=== PATIENT | male | born 1960 | race Caucasian/White ===

== ENCOUNTER → 2016-09-01 | Outpatient (CLI) | payer MEDICARE, BC ==
[~2016-09-01] MED LIST: SODIUM CHLORIDE 0.9% 250 ML in EMPTY BAG 1 BAG IV PRN; SODIUM CHLORIDE 0.9% 500 ML in EMPTY BAG 1 BAG IV PRN
[2016-09-01 11:27] VITALS: RESP 16; TEMP 98
[2016-09-01 11:54] LABS: Basophils % (A) 1 %; CH 31.7; CHCM 33.4; Eosinophils # (A) 0.2 k/uL (0-0.7); Eosinophils % (A) 5 %; HCT 45.3 % (39.0-53.0); HDW 2.57; HGB 15.1 gm/dL (13.0-17.5); Luc # (Auto) 0.14; Luc % (Auto) 3; Lymphocytes # (A) 1.4 k/uL (1.0-4.8); Lymphocytes % (A) 27 %; MCH 31.7 pg (25.0-35.0); MCHC 33.3 g/dL (31.0-37.0); MCV 95.3 fL (80.0-100.0); Mean Platelet Volume 6.8; Monocytes # (A) 0.5 k/uL (0-1.0); Monocytes % (A) 9 %; Neutrophils % (A) 57 %; RBC 4.76 m/uL (4.30-5.90); RDW 14.7 % (11.5-15.5); WBC 5.3 k/uL (3.8-10.6)
[2016-09-01 12:13] LABS: ALT 50 U/L (21-72); AST 29 U/L (17-59); Anion Gap 14 mmol/L; Blood Urea Nitrogen 17 mg/dL (9-20); C Reactive Protein <5.0 mg/L (<10.0); Calcium 9.4 mg/dL (8.4-10.2); Carbon Dioxide 24 mmol/L (22-30); Chloride 101 mmol/L (98-107); Glucose 193 mg/dL (74-99); Non-African American GFR(MDRD) >60 (>60 ml/min/1.73 sqM); Potassium 4.5 mmol/L (3.5-5.1); Sodium 139 mmol/L (137-145)
[2016-09-01 12:32] VITALS: BP 111/70; PULSE 62
[2016-09-01 13:55] LABS: Erythrocyte Sedimentation Rate 4 mm/hr (0-15)
== END | disposition home or self-care (01) ==
LOC: PROCWHC3 10:29
PROVIDERS: ATTEND Internal Medicine Rheumatology
DX: M06.89 Other specified rheumatoid arthritis, multiple sites (principal)
CPT/HCPCS: 80048; 85652; 84450; 84460; 85025; 86140; 96361; 96413; 96415; J1745

== ENCOUNTER → 2016-10-15 | Outpatient (CLI) | payer MEDICARE, BC ==
[2016-10-15 10:27] VITALS: RESP 18; TEMP 98.4
[2016-10-15 12:28] VITALS: BP 117/81; PULSE 61
== END | disposition home or self-care (01) ==
LOC: PROCWHC3 10:07
PROVIDERS: ATTEND Internal Medicine Rheumatology
DX: M06.89 Other specified rheumatoid arthritis, multiple sites (principal)
CPT/HCPCS: 96361; 96413; 96415; J1745

== ENCOUNTER → 2016-12-01 | Outpatient (CLI) | payer MEDICARE, BC ==
[2016-12-01 07:46] VITALS: RESP 16; TEMP 97.5
[2016-12-01 08:14] LABS: Basophils % (A) 1 %; CH 32.1; CHCM 33.8; Eosinophils # (A) 0.2 k/uL (0-0.7); Eosinophils % (A) 4 %; HCT 42.2 % (39.0-53.0); HDW 2.59; HGB 14.5 gm/dL (13.0-17.5); Luc # (Auto) 0.17; Luc % (Auto) 3; Lymphocytes # (A) 1.5 k/uL (1.0-4.8); Lymphocytes % (A) 28 %; MCH 32.7 pg (25.0-35.0); MCHC 34.2 g/dL (31.0-37.0); MCV 95.4 fL (80.0-100.0); Mean Platelet Volume 7.5; Monocytes # (A) 0.4 k/uL (0-1.0); Monocytes % (A) 8 %; Neutrophils # (A) 2.9 k/uL (1.3-7.7); Neutrophils % (A) 55 %; RBC 4.42 m/uL (4.30-5.90); WBC 5.2 k/uL (3.8-10.6); WBC (Perox) 5.43
[2016-12-01 08:22] LABS: ALT 34 U/L (21-72); AST 24 U/L (17-59); Anion Gap 10 mmol/L; Blood Urea Nitrogen 15 mg/dL (9-20); Calcium 9.8 mg/dL (8.4-10.2); Carbon Dioxide 27 mmol/L (22-30); Chloride 103 mmol/L (98-107); Glucose 153 mg/dL (74-99); Non-African American GFR(MDRD) >60 (>60 ml/min/1.73 sqM); Potassium 4.3 mmol/L (3.5-5.1); Sodium 140 mmol/L (137-145)
[2016-12-01 09:27] VITALS: BP 105/59; PULSE 59
[2016-12-01 09:36] LABS: C Reactive Protein <5.0 mg/L (<10.0)
[2016-12-01 10:07] LABS: Erythrocyte Sedimentation Rate 3 mm/hr (0-15)
== END | disposition home or self-care (01) ==
LOC: PROCWHC3 07:28
PROVIDERS: ATTEND Internal Medicine Rheumatology
DX: M06.89 Other specified rheumatoid arthritis, multiple sites (principal)
CPT/HCPCS: 80048; 85652; 84450; 84460; 85025; 86140; 96361; 96413; 96415; 36415; J1745

== ENCOUNTER → 2017-01-12 | Outpatient (CLI) | payer MEDICARE, BC ==
[~2017-01-12] MED LIST changes: +ACETAMINOPHEN TAB 325 MG TAB PO ONE; +diphenhydrAMINE 25 MG CAP PO ONE; +diphenhydrAMINE 50 MG/ML 1 ML VIAL IVP ONE
[2017-01-12 07:47] VITALS: TEMP 97.8
[2017-01-12 08:48] VITALS: PULSE 64
[2017-01-12 09:16] VITALS: BP 113/68; RESP 12
== END | disposition home or self-care (01) ==
LOC: PROCWHC3 07:21
PROVIDERS: ATTEND Internal Medicine Rheumatology
DX: M06.89 Other specified rheumatoid arthritis, multiple sites (principal)
CPT/HCPCS: 96361; 96413; 96415; J1745; 80048; 84450; 84460; 85025; 85652; 86140

== ENCOUNTER → 2017-02-23 | Outpatient (CLI) | payer MEDICARE, BC ==
[2017-02-23 08:10] VITALS: RESP 16; TEMP 97.9
[2017-02-23 08:23] LABS: Basophils # (A) 0.1 k/uL (0-0.2); Basophils % (A) 1 %; CH 32.4; CHCM 34.2; Eosinophils # (A) 0.2 k/uL (0-0.7); Eosinophils % (A) 4 %; HCT 43.2 % (39.0-53.0); HDW 2.72; HGB 14.6 gm/dL (13.0-17.5); Luc % (Auto) 3; Lymphocytes # (A) 1.7 k/uL (1.0-4.8); Lymphocytes % (A) 25 %; MCH 32.2 pg (25.0-35.0); MCHC 33.8 g/dL (31.0-37.0); MCV 95.2 fL (80.0-100.0); Monocytes # (A) 0.6 k/uL (0-1.0); Monocytes % (A) 8 %; Neutrophils # (A) 4.1 k/uL (1.3-7.7); Neutrophils % (A) 60 %; RBC 4.53 m/uL (4.30-5.90); RDW 15.3 % (11.5-15.5); WBC 6.8 k/uL (3.8-10.6); WBC (Perox) 6.77
[2017-02-23 08:43] LABS: ALT 31 U/L (21-72); AST 22 U/L (17-59); Anion Gap 11 mmol/L; Blood Urea Nitrogen 16 mg/dL (9-20); Calcium 9.2 mg/dL (8.4-10.2); Carbon Dioxide 23 mmol/L (22-30); Chloride 103 mmol/L (98-107); Glucose 158 mg/dL (74-99); Non-African American GFR(MDRD) >60 (>60 ml/min/1.73 sqM); Potassium 4.2 mmol/L (3.5-5.1); Sodium 137 mmol/L (137-145)
[2017-02-23 09:19] LABS: C Reactive Protein <5.0 mg/L (<10.0)
[2017-02-23 09:48] VITALS: BP 122/70; PULSE 62
[2017-02-23 10:12] LABS: Erythrocyte Sedimentation Rate 5 mm/hr (0-15)
[2017-02-23 11:44] LABS: Appearance,Urine Clear (Clear); Bilirubin,Urine Negative (Negative); Glucose,Urine (UA) Negative (Negative); Ketones,Urine Negative (Negative); Leukocyte Esterase,Urine Negative (Negative); Nitrite,Urine Negative (Negative); PH, Urine 5.5 (5.0-8.0); Protein,Urine Negative (Negative); Specific Gravity,Urine 1.004 (1.001-1.035); UA Billing (MACRO vs. MICRO) CHEM; Urobilinogen,Urine <2.0 mg/dL (<2.0)
== END | disposition home or self-care (01) ==
LOC: PROCWHC3 07:14
PROVIDERS: ATTEND Internal Medicine Rheumatology
DX: M06.89 Other specified rheumatoid arthritis, multiple sites (principal)
CPT/HCPCS: 80048; 85652; 84450; 84460; 85025; 86140; 81003; 96413; 96415; 36415; J1745

== ENCOUNTER → 2017-03-03 | Outpatient (CLI) | payer MEDICARE, BC ==
--- NOTE | 2017-03-04 06:12 | CONS ---
DATE OF CONSULTATION: 03/03/2017 A 57-year-old gentleman has been evaluated in sleep center for possible obstructive sleep apnea hypopnea syndrome. HISTORY OF PRESENT ILLNESS/SLEEP WAKE EVALUATION: SLEEP SCHEDULE: The patient usually goes to bed around 10 p.m. and gets up around 3 a.m. and he gets so early since he was retired. FALLING ASLEEP: Usually no problem with falling asleep. He has TV set in bedroom. DURING SLEEP: Sleeps on the side position or in the chair. Wakes up from sleep once with nocturia. He snores. DURING THE DAY/WAKE STATE: During the day he may feel sleepiness. [place] sleepiness scale significantly increased to 10. He has problem with the memory and worries about his sleep. PAST MEDICAL HISTORY: Positive for heart attack in 2000, rheumatoid arthritis, diabetes mellitus, hypertension, hyperlipidemia, tremor. PAST SURGICAL HISTORY: Neck surgery, bilateral knee surgery for meniscus problems, stent insertions to the coronary arteries. MEDICATIONS: Methotrexate, simvastatin, metformin, isosorbide, propranolol, benazepril, bupropion, amlodipine, Ecotrin, vitamin D3 supplement, folic acid, Remicade. SOCIAL HISTORY: Positive for smoking 1 to 2 packs per day up to 30 years, quit 3 years ago. Alcohol consumption occasional. FAMILY HISTORY: Hypertension, heart problems, hyperlipidemia, arthritis, cancer , snoring, diabetes. REVIEW OF SYSTEMS: Awakening from sleep, sleepiness during the day. No fevers. No double vision. No recent chest pain. No shortness of breath. No abdominal pain. No bleeding episodes. No blood in urine. No seizure episodes. PHYSICAL EXAMINATION: During physical exam, a 57-year-old gentleman without distress. VITAL SIGNS: BP 128/86. HR 68. RR 14. Height 5 feet 10 inches, weight 298.4, BMI 44, neck 19 inches in circumference, temperature 98.3, oxygen saturation in room air 98%. HEENT: PERRLA, EOMI: Evaluation of oropharynx showed extremely low position of soft palate, restriction of nasal breathing. NECK: Supple No JVD. Thyroid is not palpable. LUNGS: Clear to percussion and to auscultation. Good air exchange. No wheezing or rhonchi. HEART: S1, S2 regular. No murmurs, gallops or rubs. ABDOMEN: Obese. EXTREMITIES: No clubbing or cyanosis. TOPOGRAPHICAL FIELD ASSISTANT: Minimal tremor of the fingers. Test with the finger nose is normal. IMPRESSION: 1. Snoring, extremely low position of soft palate, sleepiness during the day, big neck, obesity, obstructive sleep apnea hypopnea syndrome. 2. Obesity, body mass index 44. 3. History of rheumatoid arthritis. 4. History of diabetes mellitus. 5. Hyperlipidemia. 6. Coronary artery disease, status post myocardial infarction in 2000. 7. Status post stent insertion to coronary artery. 8. Hypertension. 9. Hyperlipidemia. 10. Status post neck surgery. 11. Status post bilateral knee surgery for meniscus problems. PLAN: 1. Polysomnography for evaluation of patient's breathing during sleep. 2. CPAP/BiPAP titration if sleep study confirms obstructive sleep apnea- hypopnea syndrome. 3. Preferable position during sleep on the side. 4. No driving if patient feels any sleepiness. Patient is aware of civil and criminal liability for unsafe driving. 5. I will see patient for follow-up visit to explain results of the testing and following plan. Thank you very much for referring this patient for consultation. Sincerely, Kye Camargo MD, PhD, FAASM Diplomat of [place] [employer] Sleep Medicine Board by [place] [employer] [place] [employer] Physical Meteorologist of [facility] [place]. BEAN
== END ==
LOC: SLEEP 11:42
PROVIDERS: ATTEND Internal Medicine
DX: G47.33 Obstructive sleep apnea (adult) (pediatric) (principal); E66.9 Obesity, unspecified; E78.5 Hyperlipidemia, unspecified; I25.10 Atherosclerotic heart disease of native coronary artery without angina pectoris; I10 Essential (primary) hypertension; I25.2 Old myocardial infarction; Z98.890 Other specified postprocedural states; Z79.899 Other long term (current) drug therapy
CPT/HCPCS: 99211

== ENCOUNTER → 2017-04-06 | Outpatient (CLI) | payer MEDICARE, BC ==
[~2017-04-06] MED LIST changes: -SODIUM CHLORIDE 0.9% 250 ML in EMPTY BAG 1 BAG IV PRN
[2017-04-06 07:28] VITALS: TEMP 97.7
[2017-04-06 07:57] LABS: Basophils % (A) 1 %; CH 32.7; CHCM 33.3; Eosinophils # (A) 0.2 k/uL (0-0.7); Eosinophils % (A) 3 %; HCT 47.7 % (39.0-53.0); HDW 2.61; HGB 15.1 gm/dL (13.0-17.5); Luc # (Auto) 0.11; Luc % (Auto) 2; Lymphocytes # (A) 1.7 k/uL (1.0-4.8); Lymphocytes % (A) 30 %; MCH 31.2 pg (25.0-35.0); MCHC 31.7 g/dL (31.0-37.0); MCV 98.6 fL (80.0-100.0); Macrocytosis Slight; Mean Platelet Volume 7.8; Monocytes # (A) 0.5 k/uL (0-1.0); Monocytes % (A) 8 %; Neutrophils % (A) 55 %; RBC 4.84 m/uL (4.30-5.90); RDW 15.5 % (11.5-15.5); WBC 5.4 k/uL (3.8-10.6); WBC (Perox) 5.25
[2017-04-06 08:11] LABS: ALT 38 U/L (21-72); AST 26 U/L (17-59); Alkaline Phosphatase 74 U/L (38-126); Anion Gap 10 mmol/L; Bilirubin, Delta 0.2 mg/dL (0.0-0.2); Blood Urea Nitrogen 17 mg/dL (9-20); Calcium 9.7 mg/dL (8.4-10.2); Carbon Dioxide 26 mmol/L (22-30); Chloride 102 mmol/L (98-107); Glucose 161 mg/dL (74-99); Non-African American GFR(MDRD) >60 (>60 ml/min/1.73 sqM); Potassium 4.6 mmol/L (3.5-5.1); Sodium 138 mmol/L (137-145); Total Bilirubin 0.3 mg/dL (0.2-1.3); Total Protein 7.3 g/dL (6.3-8.2)
[2017-04-06 09:38] VITALS: BP 118/56; PULSE 61; RESP 16
[2017-04-06 11:25] LABS: Erythrocyte Sedimentation Rate 5 mm/hr (0-15)
[2017-04-06 12:53] LABS: Appearance,Urine Clear (Clear); Bilirubin,Urine Negative (Negative); Glucose,Urine (UA) Negative (Negative); Ketones,Urine Negative (Negative); Leukocyte Esterase,Urine Negative (Negative); Nitrite,Urine Negative (Negative); PH, Urine 5.5 (5.0-8.0); Protein,Urine Negative (Negative); Specific Gravity,Urine 1.007 (1.001-1.035); UA Billing (MACRO vs. MICRO) CHEM; Urobilinogen,Urine <2.0 mg/dL (<2.0)
== END ==
LOC: PROCWHC3 07:14
PROVIDERS: ATTEND Internal Medicine Rheumatology
DX: M06.89 Other specified rheumatoid arthritis, multiple sites (principal)
CPT/HCPCS: 80053; 85652; 82248; 85025; 81003; 96413; 96415; J1745

== ENCOUNTER 2017-04-16 08:51 | Emergency (ER) | payer MEDICARE, BC ==
[2017-04-16 08:56] VITALS: RESP 18
--- NOTE | 2017-04-16 09:26 | ED ---
Back Pain HPI - General Chief Complaint: Back Pain/Injury Stated Complaint: BACK PAIN Time Seen by Provider: 04/16/17 09:09 Source: patient, RN notes reviewed Limitations: no limitations - History of Present Illness Initial Comments: Patient is a 57-year-old male presents to the emergency room for evaluation of back pain. Patient states last night while in sitting position, he went to stand up and felt a sharp pain in his mid thoracic back area. Patient states the pain was very excruciating so he laid in bed the rest of the night. Patient states he still having a constant nagging pain in his mid back. Patient denies shortness of breath or chest pain. Patient states the pain is not any worse with deep breaths. Patient states the pain is worse with movement. Patient states the pain is worse when he is bending forward. Patient denies he numbness or tingling in his fingers or toes. Patient denies any specific injury to his back. Patient denies any recent falls. Patient denies recent heavy lifting. Patient denies taking anything for pain. Patient denies any other injuries or complaints at this time. Patient denies fecal or urinary incontinence. Patient denies saddle anesthesia. - Related Data Home Medications Medication Instructions Recorded Confirmed Aspirin EC [Ecotrin] 325 mg PO DAILY 04/30/15 04/06/17 Folic Acid 1 mg PO DAILY 04/30/15 04/06/17 Isosorbide Dinitrate [Isosorbide 30 mg PO DAILY 04/30/15 04/06/17 Dinitrate] Methotrexate Sodium [Methotrexate] 2.5 mg PO WEEKLY 04/30/15 04/06/17 Simvastatin [Simvastatin] 80 mg PO DAILY 04/30/15 04/06/17 amLODIPine [Norvasc] 5 mg PO DAILY 04/30/15 04/06/17 buPROPion HCL [Wellbutrin SR] 150 mg PO DAILY 04/30/15 04/06/17 metFORMIN HCL [Glucophage] 1,000 mg PO BID 04/30/15 04/06/17 Cholecalciferol [Vitamin D3] 1,000 unit PO DAILY@1200 05/15/15 04/06/17 Propranolol HCl [Inderal LA] 120 mg PO DAILY 05/15/15 04/06/17 inFLIXimab [Remicade] 0 mg IVPB DAILY 05/15/15 04/06/17 Previous Rx's Medication Instructions Recorded HYDROcodone/APAP 5-325MG [Grubbs 1 tab PO Q6HR PRN #12 tab 04/16/17 5-325] Ibuprofen [Motrin] 600 mg PO Q6HR PRN #30 tab 04/16/17 Allergies Allergy/AdvReac Type Severity Reaction Status Date / Time No Known Allergies Allergy Verified 04/16/17 08:56 Review of Systems ROS Statement: Those systems with pertinent positive or pertinent negative responses have been documented in the HPI. ROS Other: All systems not noted in ROS Statement are negative. Past Medical History Past Medical History: Diabetes Mellitus, Hyperlipidemia, Hypertension, Myocardial Infarction ([place]), Rheumatoid Arthritis ([place]) Additional Past Medical History / Comment(s): Heart attack - 2000 Last Myocardial Infarction Date:: 2000 History of Any Multi-Drug Resistant Organisms: None Reported Past Surgical History: Orthopedic Surgery Additional Past Surgical History / Comment(s): Neck surgery. Shoulder surgery. Bilateral knee surgery. Stent placements (2000 and 2001). Total teeth extraction (2013) Past Psychological History: No Psychological Hx Reported Smoking Status: Former smoker Past Alcohol Use History: None Reported Past Drug Use History: None Reported General Exam - General Exam Comments Initial Comments: sitting in exam room, no acute distress. Limitations: no limitations General appearance: alert, in no apparent distress Head exam: Present: atraumatic, normocephalic, normal inspection Eye exam: Present: normal appearance ENT exam: Present: normal exam Neck exam: Present: normal inspection Respiratory exam: Present: normal lung sounds bilaterally. Absent: respiratory distress Cardiovascular Exam: Present: regular rate, normal rhythm, normal heart sounds Expanded Peripheral pulses: 2+: Femoral (R), Femoral (L) Extremities exam: Present: normal inspection, full ROM, normal capillary refill. Absent: tenderness Back exam: Present: normal inspection, full ROM, vertebral tenderness (mid- thoracic). Absent: tenderness, CVA tenderness (R), CVA tenderness (L), paraspinal tenderness Neurological exam: Present: alert, oriented X3, CN II-XII intact, normal gait Psychiatric exam: Present: normal affect, normal mood Skin exam: Present: warm, dry, intact, normal color. Absent: rash Course Vital Signs 04/16/17 04/16/17 08:52 09:56 Temperature 97.1 F L Pulse Rate 64 67 Respiratory 18 18 Rate Blood Pressure 168/85 116/70 O2 Sat by Pulse 99 Oximetry Medical Decision Making - Medical Decision Making patient is a 57-year-old male presents to the emergency room for evaluation of the midthoracic back pain. Patient states pain began when he was getting up from his chair last night. Patient denies taking anything for pain. EKG shows no significant findings. Chest x-ray shows no significant findings. There is some wedging noted and thoracic spine x-ray. Pain is worse with movement. Patient denies any worsening pain with taking a deep breath. Patient denies chest pain, shortness of breath, dizziness, diaphoresis. Patient be sent home with anti-inflammatories and pain medications and advised to follow-up with primary care provider. Patient has no neuro deficits. Patient states she understands everything that was discussed with him. Return parameters discussed. Case discussed with Dr. Smith. 04/16/17 10:55 normal sinus rhythm, ventricular rate 67 bpm, NH interval 196 ms, QRS duration 88 ms, QT/QTC 388/409 ms - Radiology Data Radiology results: report reviewed, image reviewed Disposition Clinical Impression: Thoracic back pain Disposition: HOME SELF-CARE Condition: Good Instructions: Thoracic Back Strain (ED) Additional Instructions: Warm moist heat. Take medications as needed. Please follow up with primary care provider for further evaluation. If any new symptom arises or symptoms worsen, return to ER as soon as possible. Prescriptions: HYDROcodone/APAP 5-325MG [Grubbs 5-325] 1 tab PO Q6HR PRN #12 tab PRN Reason: Pain Ibuprofen [Motrin] 600 mg PO Q6HR PRN #30 tab PRN Reason: Pain Referrals: Isaiah Jorgensen DO [Primary Care Provider] - 1-2 days Time of Disposition: 10:37
--- NOTE | 2017-04-16 09:51 | XR ---
EXAMINATION TYPE: XR chest 2V DATE OF EXAM: 04/16/2017 COMPARISON: 10/17/2015 HISTORY: Syncope chest pain TECHNIQUE: Frontal and lateral views of the chest are obtained. FINDINGS: There is no heart failure nor confluent pneumonic infiltrate. Costophrenic angles are lisset r. Cervical spine fusion surgery is noted. Bony thorax is intact. IMPRESSION: No active cardiopulmonary disease. No change.
--- NOTE | 2017-04-16 09:53 | XR ---
EXAMINATION TYPE: XR thoracic spine complete DATE OF EXAM: 04/16/2017 COMPARISON: NONE HISTORY: Back pain TECHNIQUE: 3 views FINDINGS: The thoracic vertebra fairly normal alignment. There is 10-15% anterior wedging of T10 and T9 T8 vertebra. There is mild kyphotic curvature. There is no paraspinal mass. There is mild spurring of the endplates. Posterior elements are intact. IMPRESSION: Mild wedging of a few thoracic vertebra. No definite acute fracture seen. No change compared to chest x-ray on 10/17/2015.
[2017-04-16 10:16] VITALS: BP 116/70; PULSE 67
[2017-04-16 10:53] VITALS: TEMP 98
== END 2017-04-16 10:53 | disposition home or self-care (01) ==
LOC: EC 08:51
DX: M54.6 Pain in thoracic spine (principal); E11.9 Type 2 diabetes mellitus without complications; E78.5 Hyperlipidemia, unspecified; I10 Essential (primary) hypertension; I25.2 Old myocardial infarction; M06.9 Rheumatoid arthritis, unspecified; Z87.891 Personal history of nicotine dependence; Z79.84 Long term (current) use of oral hypoglycemic drugs; Z79.899 Other long term (current) drug therapy; Z79.82 Long term (current) use of aspirin
CPT/HCPCS: 71020; 72072; 93005; 99283

== ENCOUNTER → 2017-05-18 | Outpatient (CLI) | payer MEDICARE, BC ==
[~2017-05-18] MED LIST changes: +INFLIXIMAB-DYYB 500 MG in SODIUM CHLORIDE 0.9% 250 ML IV NR
[2017-05-18 08:10] VITALS: TEMP 98.3
[2017-05-18 08:27] LABS: Anisocytosis Slight; Basophils % (A) 1 %; CH 32.3; CHCM 33.3; Eosinophils # (A) 0.2 k/uL (0-0.7); Eosinophils % (A) 4 %; HCT 42.5 % (39.0-53.0); HDW 2.58; HGB 14.2 gm/dL (13.0-17.5); Luc # (Auto) 0.12; Luc % (Auto) 2; Lymphocytes # (A) 1.4 k/uL (1.0-4.8); Lymphocytes % (A) 26 %; MCH 32.6 pg (25.0-35.0); MCHC 33.4 g/dL (31.0-37.0); MCV 97.6 fL (80.0-100.0); Macrocytosis Slight; Mean Platelet Volume 7.9; Monocytes # (A) 0.5 k/uL (0-1.0); Monocytes % (A) 8 %; Neutrophils # (A) 3.3 k/uL (1.3-7.7); Neutrophils % (A) 59 %; RBC 4.36 m/uL (4.30-5.90); RDW 16.3 % (11.5-15.5); WBC 5.5 k/uL (3.8-10.6); WBC (Perox) 5.08
[2017-05-18 08:43] LABS: ALT 27 U/L (21-72); AST 32 U/L (17-59); Alkaline Phosphatase 60 U/L (38-126); Anion Gap 11 mmol/L; Bilirubin, Delta 0.4 mg/dL (0.0-0.2); Blood Urea Nitrogen 14 mg/dL (9-20); Calcium 8.9 mg/dL (8.4-10.2); Carbon Dioxide 24 mmol/L (22-30); Chloride 100 mmol/L (98-107); Glucose 252 mg/dL (74-99); Non-African American GFR(MDRD) >60 (>60 ml/min/1.73 sqM); Sodium 135 mmol/L (137-145); Total Bilirubin 0.5 mg/dL (0.2-1.3); Total Protein 6.8 g/dL (6.3-8.2)
[2017-05-18 08:49] LABS: Potassium 4.8 mmol/L (3.5-5.1)
[2017-05-18 09:55] VITALS: BP 110/68; PULSE 60; RESP 16
[2017-05-18 11:52] LABS: Appearance,Urine Clear (Clear); Bilirubin,Urine Negative (Negative); Glucose,Urine (UA) 2+ (Negative); Ketones,Urine Negative (Negative); Leukocyte Esterase,Urine Negative (Negative); Nitrite,Urine Negative (Negative); PH, Urine 6.5 (5.0-8.0); Protein,Urine Negative (Negative); Specific Gravity,Urine 1.001 (1.001-1.035); UA Billing (MACRO vs. MICRO) CHEM; Urobilinogen,Urine <2.0 mg/dL (<2.0)
[2017-05-18 11:55] LABS: Erythrocyte Sedimentation Rate 2 mm/hr (0-15)
== END | disposition home or self-care (01) ==
LOC: PROCWHC3 07:55
PROVIDERS: ATTEND Internal Medicine Rheumatology
DX: M06.89 Other specified rheumatoid arthritis, multiple sites (principal)
CPT/HCPCS: 80053; 85652; 82248; 85025; 81003; 96413; 96415; 36415; Q5102; 96361

== ENCOUNTER → 2017-09-21 | Outpatient (CLI) | payer MEDICARE, BC ==
[~2017-09-21] MED LIST changes: -INFLIXIMAB-DYYB 500 MG in SODIUM CHLORIDE 0.9% 250 ML IV NR; +INFLIXIMAB-DYYB 500 MG in SODIUM CHLORIDE 0.9% 250 ML IV ONE
[2017-09-21 07:28] VITALS: TEMP 98.6
[2017-09-21 07:56] LABS: Basophils # (A) 0.1 k/uL (0-0.2); Basophils % (A) 1 %; Eosinophils # (A) 0.2 k/uL (0-0.7); Eosinophils % (A) 4 %; HCT 44.2 % (39.0-53.0); HGB 14.4 gm/dL (13.0-17.5); Lymphocytes # (A) 1.9 k/uL (1.0-4.8); Lymphocytes % (A) 33 %; MCH 30.9 pg (25.0-35.0); MCHC 32.5 g/dL (31.0-37.0); MCV 94.9 fL (80.0-100.0); Mean Platelet Volume 7.4; Monocytes # (A) 0.6 k/uL (0-1.0); Monocytes % (A) 10 %; Neutrophils # (A) 2.8 k/uL (1.3-7.7); Neutrophils % (A) 50 %; Platelet Count 201 k/uL (150-450); RBC 4.66 m/uL (4.30-5.90); RDW 15.4 % (11.5-15.5); WBC 5.6 k/uL (3.8-10.6)
[2017-09-21 08:02] LABS: ALT 30 U/L (21-72); AST 31 U/L (17-59); Albumin 4.3 g/dL (3.5-5.0); Alkaline Phosphatase 66 U/L (38-126); Anion Gap 12 mmol/L; Bilirubin, Delta 0.4 mg/dL (0.0-0.2); Blood Urea Nitrogen 16 mg/dL (9-20); Calcium 9.9 mg/dL (8.4-10.2); Carbon Dioxide 25 mmol/L (22-30); Chloride 103 mmol/L (98-107); Glucose 157 mg/dL (74-99); Sodium 140 mmol/L (137-145); Total Bilirubin 0.4 mg/dL (0.2-1.3); Total Protein 7.6 g/dL (6.3-8.2)
[2017-09-21 08:17] LABS: Potassium 4.7 mmol/L (3.5-5.1)
[2017-09-21 09:16] VITALS: BP 111/69; PULSE 63; RESP 16
[2017-09-21 10:13] LABS: Erythrocyte Sedimentation Rate 7 mm/hr (0-15)
[2017-09-21 12:31] LABS: Appearance,Urine Clear (Clear); Bilirubin,Urine Negative (Negative); Blood,Urine Negative (Negative); Color,Urine Light Yellow; Glucose,Urine (UA) Negative (Negative); Ketones,Urine Negative (Negative); Leukocyte Esterase,Urine Negative (Negative); Nitrite,Urine Negative (Negative); PH, Urine 5.5 (5.0-8.0); Protein,Urine Negative (Negative); Specific Gravity,Urine 1.005 (1.001-1.035); Urobilinogen,Urine <2.0 mg/dL (<2.0)
== END | disposition home or self-care (01) ==
LOC: PROCWHC3 07:14
PROVIDERS: ATTEND Internal Medicine Rheumatology
DX: M06.89 Other specified rheumatoid arthritis, multiple sites (principal)
CPT/HCPCS: 80053; 85652; 82248; 85025; 81003; 96413; 96415; Q5102

== ENCOUNTER → 2017-11-02 | Outpatient (CLI) | payer MEDICARE, BC ==
[2017-11-02 07:42] VITALS: RESP 16; TEMP 97.6
[2017-11-02 08:00] LABS: Basophils % (A) 1 %; Eosinophils # (A) 0.2 k/uL (0-0.7); Eosinophils % (A) 3 %; HCT 40.8 % (39.0-53.0); HGB 13.5 gm/dL (13.0-17.5); Lymphocytes # (A) 1.7 k/uL (1.0-4.8); Lymphocytes % (A) 29 %; MCHC 33.2 g/dL (31.0-37.0); MCV 93.4 fL (80.0-100.0); Monocytes # (A) 0.6 k/uL (0-1.0); Monocytes % (A) 10 %; Neutrophils # (A) 3.2 k/uL (1.3-7.7); Neutrophils % (A) 55 %; Platelet Count 175 k/uL (150-450); RBC 4.37 m/uL (4.30-5.90); RDW 15.1 % (11.5-15.5); WBC 5.8 k/uL (3.8-10.6)
[2017-11-02 08:27] LABS: ALT 27 U/L (21-72); AST 20 U/L (17-59); Albumin 3.9 g/dL (3.5-5.0); Alkaline Phosphatase 72 U/L (38-126); Anion Gap 11 mmol/L; Bilirubin, Delta 0.2 mg/dL (0.0-0.2); Blood Urea Nitrogen 19 mg/dL (9-20); Calcium 9.5 mg/dL (8.4-10.2); Carbon Dioxide 23 mmol/L (22-30); Chloride 103 mmol/L (98-107); Glucose 147 mg/dL (74-99); Potassium 4.4 mmol/L (3.5-5.1); Sodium 137 mmol/L (137-145); Total Bilirubin 0.2 mg/dL (0.2-1.3); Total Protein 6.8 g/dL (6.3-8.2)
[2017-11-02 09:38] VITALS: BP 127/75; PULSE 58
[2017-11-02 10:40] LABS: Appearance,Urine Clear (Clear); Bilirubin,Urine Negative (Negative); Blood,Urine Negative (Negative); Color,Urine Colorless; Glucose,Urine (UA) Negative (Negative); Ketones,Urine Negative (Negative); Leukocyte Esterase,Urine Negative (Negative); PH, Urine 5.5 (5.0-8.0); Protein,Urine Negative (Negative); Specific Gravity,Urine 1.004 (1.001-1.035); Urobilinogen,Urine <2.0 mg/dL (<2.0)
[2017-11-02 13:16] LABS: Erythrocyte Sedimentation Rate 7 mm/hr (0-15)
== END | disposition home or self-care (01) ==
LOC: PROCWHC3 07:11
PROVIDERS: ATTEND Internal Medicine Rheumatology
DX: M06.89 Other specified rheumatoid arthritis, multiple sites (principal)
CPT/HCPCS: 80053; 85652; 82248; 85025; 81003; 96413; 96415; 36415; Q5102

== ENCOUNTER → 2017-12-14 | Outpatient (CLI) | payer MEDICARE, BC ==
[~2017-12-14] MED LIST changes: -ACETAMINOPHEN TAB 325 MG TAB PO ONE; +INFLIXIMAB-DYYB 500 MG in SODIUM CHLORIDE 0.9% 250 ML IV NR; -INFLIXIMAB-DYYB 500 MG in SODIUM CHLORIDE 0.9% 250 ML IV ONE; -diphenhydrAMINE 25 MG CAP PO ONE; -diphenhydrAMINE 50 MG/ML 1 ML VIAL IVP ONE
[2017-12-14 08:20] VITALS: RESP 16; TEMP 97.6
[2017-12-14 09:15] LABS: Basophils % (A) 0 %; Eosinophils # (A) 0.2 k/uL (0-0.7); Eosinophils % (A) 4 %; HCT 42.1 % (39.0-53.0); HGB 14.4 gm/dL (13.0-17.5); Lymphocytes # (A) 1.5 k/uL (1.0-4.8); Lymphocytes % (A) 31 %; MCHC 34.1 g/dL (31.0-37.0); MCV 90.9 fL (80.0-100.0); Mean Platelet Volume 7.1; Monocytes # (A) 0.4 k/uL (0-1.0); Monocytes % (A) 9 %; Neutrophils # (A) 2.5 k/uL (1.3-7.7); Neutrophils % (A) 52 %; Platelet Count 204 k/uL (150-450); RBC 4.63 m/uL (4.30-5.90); RDW 14.7 % (11.5-15.5); WBC 4.9 k/uL (3.8-10.6)
[2017-12-14 09:28] LABS: ALT 27 U/L (21-72); AST 21 U/L (17-59); Alkaline Phosphatase 65 U/L (38-126); Anion Gap 12 mmol/L; Bilirubin, Delta 0.2 mg/dL (0.0-0.2); Blood Urea Nitrogen 17 mg/dL (9-20); Calcium 9.3 mg/dL (8.4-10.2); Carbon Dioxide 26 mmol/L (22-30); Chloride 102 mmol/L (98-107); Glucose 160 mg/dL (74-99); Potassium 4.4 mmol/L (3.5-5.1); Sodium 140 mmol/L (137-145); Total Bilirubin 0.2 mg/dL (0.2-1.3)
[2017-12-14 09:34] VITALS: PULSE 57
[2017-12-14 09:52] VITALS: BP 133/81
[2017-12-14 10:08] LABS: Erythrocyte Sedimentation Rate 3 mm/hr (0-15)
[2017-12-14 11:06] LABS: Appearance,Urine Clear (Clear); Bilirubin,Urine Negative (Negative); Blood,Urine Negative (Negative); Color,Urine Light Yellow; Glucose,Urine (UA) Negative (Negative); Ketones,Urine Negative (Negative); Leukocyte Esterase,Urine Negative (Negative); Nitrite,Urine Negative (Negative); PH, Urine 5.5 (5.0-8.0); Protein,Urine Negative (Negative); Urobilinogen,Urine <2.0 mg/dL (<2.0)
== END | disposition home or self-care (01) ==
LOC: PROCWHC3 08:13
PROVIDERS: ATTEND Internal Medicine Rheumatology
DX: M06.89 Other specified rheumatoid arthritis, multiple sites (principal)
CPT/HCPCS: 80053; 85652; 82248; 85025; 81003; 96413; 96415; 36415; Q5103

== ENCOUNTER → 2018-01-25 | Outpatient (CLI) | payer MEDICARE, BC ==
[~2018-01-25] MED LIST changes: +ACETAMINOPHEN TAB 325 MG TAB PO ONE; -INFLIXIMAB-DYYB 500 MG in SODIUM CHLORIDE 0.9% 250 ML IV NR; +INFLIXIMAB-DYYB 500 MG in SODIUM CHLORIDE 0.9% 250 ML IV ONE; +diphenhydrAMINE 25 MG CAP PO ONE; +diphenhydrAMINE 50 MG/ML 1 ML VIAL IVP ONE
[2018-01-25 08:42] VITALS: RESP 16; TEMP 99.6
[2018-01-25 08:44] LABS: Basophils % (A) 1 %; Eosinophils # (A) 0.2 k/uL (0-0.7); Eosinophils % (A) 4 %; HCT 41.6 % (39.0-53.0); Lymphocytes # (A) 1.4 k/uL (1.0-4.8); Lymphocytes % (A) 28 %; MCH 32.1 pg (25.0-35.0); MCHC 33.7 g/dL (31.0-37.0); MCV 95.3 fL (80.0-100.0); Mean Platelet Volume 7.1; Monocytes # (A) 0.5 k/uL (0-1.0); Monocytes % (A) 9 %; Neutrophils # (A) 2.8 k/uL (1.3-7.7); Neutrophils % (A) 55 %; Platelet Count 232 k/uL (150-450); RBC 4.37 m/uL (4.30-5.90); RDW 15.4 % (11.5-15.5)
[2018-01-25 09:04] LABS: Anion Gap 12 mmol/L; Bilirubin, Delta 0.4 mg/dL (0.0-0.2); Bilirubin,Unconjugated 0.1 mg/dL (0.0-1.1); Calcium 9.1 mg/dL (8.4-10.2); Carbon Dioxide 22 mmol/L (22-30); Chloride 102 mmol/L (98-107); Glucose 153 mg/dL (74-99); Sodium 136 mmol/L (137-145); Total Bilirubin 0.5 mg/dL (0.2-1.3); Total Protein 6.9 g/dL (6.3-8.2)
[2018-01-25 09:10] LABS: Blood Urea Nitrogen 18 mg/dL (9-20); Potassium 5.3 mmol/L (3.5-5.1)
[2018-01-25 09:11] LABS: ALT 26 U/L (21-72); AST 32 U/L (17-59); Alkaline Phosphatase 65 U/L (38-126)
[2018-01-25 09:28] LABS: Erythrocyte Sedimentation Rate 2 mm/hr (0-15)
[2018-01-25 10:13] VITALS: BP 109/59; PULSE 59
[2018-01-25 11:26] LABS: Appearance,Urine Clear (Clear); Bilirubin,Urine Negative (Negative); Blood,Urine Negative (Negative); Color,Urine Light Yellow; Glucose,Urine (UA) Negative (Negative); Ketones,Urine Negative (Negative); Leukocyte Esterase,Urine Negative (Negative); Nitrite,Urine Negative (Negative); PH, Urine 5.5 (5.0-8.0); Protein,Urine Negative (Negative); Specific Gravity,Urine 1.006 (1.001-1.035); Urobilinogen,Urine <2.0 mg/dL (<2.0)
== END | disposition home or self-care (01) ==
LOC: PROCWHC3 07:54
PROVIDERS: ATTEND Internal Medicine Rheumatology
DX: M06.89 Other specified rheumatoid arthritis, multiple sites (principal)
CPT/HCPCS: 80053; 85652; 82248; 85025; 81003; 96413; 96415; 36415; Q5103

== ENCOUNTER → 2018-03-08 | Outpatient (CLI) | payer MEDICARE, BC ==
[~2018-03-08] MED LIST changes: +ACETAMINOPHEN TAB 325 MG TAB PO NR; -ACETAMINOPHEN TAB 325 MG TAB PO ONE; +INFLIXIMAB-DYYB 500 MG in SODIUM CHLORIDE 0.9% 250 ML IV NR; -INFLIXIMAB-DYYB 500 MG in SODIUM CHLORIDE 0.9% 250 ML IV ONE; +diphenhydrAMINE 25 MG CAP PO NR; -diphenhydrAMINE 25 MG CAP PO ONE; -diphenhydrAMINE 50 MG/ML 1 ML VIAL IVP ONE
[2018-03-08 08:25] VITALS: RESP 16; TEMP 97.8
[2018-03-08 08:41] LABS: Anisocytosis Slight; Basophils % (A) 1 %; Eosinophils # (A) 0.2 k/uL (0-0.7); Eosinophils % (A) 4 %; HCT 41.8 % (39.0-53.0); HGB 14.1 gm/dL (13.0-17.5); Lymphocytes # (A) 1.5 k/uL (1.0-4.8); Lymphocytes % (A) 27 %; MCH 32.5 pg (25.0-35.0); MCHC 33.8 g/dL (31.0-37.0); MCV 96.2 fL (80.0-100.0); Macrocytosis Slight; Monocytes # (A) 0.5 k/uL (0-1.0); Monocytes % (A) 9 %; Neutrophils # (A) 3.2 k/uL (1.3-7.7); Neutrophils % (A) 58 %; Platelet Count 239 k/uL (150-450); RBC 4.34 m/uL (4.30-5.90); RDW 16.2 % (11.5-15.5); WBC 5.5 k/uL (3.8-10.6)
[2018-03-08 08:52] LABS: ALT 36 U/L (21-72); AST 23 U/L (17-59); Alkaline Phosphatase 55 U/L (38-126); Anion Gap 11 mmol/L; Bilirubin, Delta 0.2 mg/dL (0.0-0.2); Bilirubin,Unconjugated 0.2 mg/dL (0.0-1.1); Blood Urea Nitrogen 15 mg/dL (9-20); Calcium 9.3 mg/dL (8.4-10.2); Carbon Dioxide 26 mmol/L (22-30); Chloride 101 mmol/L (98-107); Glucose 141 mg/dL (74-99); Potassium 4.6 mmol/L (3.5-5.1); Sodium 138 mmol/L (137-145); Total Bilirubin 0.4 mg/dL (0.2-1.3); Total Protein 6.8 g/dL (6.3-8.2)
[2018-03-08 09:37] VITALS: BP 115/62; PULSE 56
[2018-03-08 09:38] LABS: Erythrocyte Sedimentation Rate 4 mm/hr (0-15)
[2018-03-08 10:55] LABS: Appearance,Urine Clear (Clear); Bilirubin,Urine Negative (Negative); Blood,Urine Negative (Negative); Color,Urine Light Yellow; Glucose,Urine (UA) Negative (Negative); Ketones,Urine Negative (Negative); Leukocyte Esterase,Urine Negative (Negative); Nitrite,Urine Negative (Negative); PH, Urine 5.5 (5.0-8.0); Protein,Urine Negative (Negative); Specific Gravity,Urine 1.007 (1.001-1.035); Urobilinogen,Urine <2.0 mg/dL (<2.0)
== END | disposition home or self-care (01) ==
LOC: PROCWHC3 08:08
PROVIDERS: ATTEND Internal Medicine Rheumatology
DX: M06.89 Other specified rheumatoid arthritis, multiple sites (principal)
CPT/HCPCS: 80053; 85652; 82248; 85025; 81003; 96361; 96413; 96415; 36415; Q5103

== ENCOUNTER → 2018-05-31 | Outpatient (CLI) | payer MEDICARE, BC ==
[2018-05-31 08:46] VITALS: RESP 16; TEMP 97.7
[2018-05-31 09:26] LABS: Basophils # (A) 0.1 k/uL (0-0.2); Basophils % (A) 1 %; Eosinophils # (A) 0.2 k/uL (0-0.7); Eosinophils % (A) 4 %; HCT 45.6 % (39.0-53.0); HGB 14.2 gm/dL (13.0-17.5); Lymphocytes # (A) 1.6 k/uL (1.0-4.8); Lymphocytes % (A) 28 %; MCH 30.7 pg (25.0-35.0); MCHC 31.2 g/dL (31.0-37.0); MCV 98.6 fL (80.0-100.0); Macrocytosis Slight; Mean Platelet Volume 7.3; Monocytes # (A) 0.5 k/uL (0-1.0); Monocytes % (A) 9 %; Neutrophils # (A) 3.2 k/uL (1.3-7.7); Neutrophils % (A) 57 %; Platelet Count 229 k/uL (150-450); RBC 4.63 m/uL (4.30-5.90); RDW 15.3 % (11.5-15.5); WBC 5.6 k/uL (3.8-10.6)
[2018-05-31 09:49] LABS: ALT 25 U/L (21-72); AST 27 U/L (17-59); Albumin 4.1 g/dL (3.5-5.0); Alkaline Phosphatase 64 U/L (38-126); Anion Gap 10 mmol/L; Bilirubin, Delta 0.5 mg/dL (0.0-0.2); Blood Urea Nitrogen 18 mg/dL (9-20); Calcium 9.5 mg/dL (8.4-10.2); Carbon Dioxide 25 mmol/L (22-30); Chloride 104 mmol/L (98-107); Glucose 144 mg/dL (74-99); Sodium 139 mmol/L (137-145); Total Bilirubin 0.5 mg/dL (0.2-1.3); Total Protein 7.4 g/dL (6.3-8.2)
[2018-05-31 09:54] LABS: Potassium 4.9 mmol/L (3.5-5.1)
[2018-05-31 10:01] VITALS: BP 130/74; PULSE 58
[2018-05-31 10:49] LABS: Erythrocyte Sedimentation Rate 6 mm/hr (0-15)
[2018-05-31 12:47] LABS: Appearance,Urine Clear (Clear); Bilirubin,Urine Negative (Negative); Blood,Urine Negative (Negative); Color,Urine Light Yellow; Glucose,Urine (UA) Negative (Negative); Ketones,Urine Negative (Negative); Leukocyte Esterase,Urine Negative (Negative); Nitrite,Urine Negative (Negative); Protein,Urine Negative (Negative); Specific Gravity,Urine 1.012 (1.001-1.035); Urobilinogen,Urine <2.0 mg/dL (<2.0)
== END | disposition home or self-care (01) ==
LOC: PROCWHC3 07:59
PROVIDERS: ATTEND Internal Medicine Rheumatology
DX: M06.89 Other specified rheumatoid arthritis, multiple sites (principal)
CPT/HCPCS: 80053; 85652; 82248; 85025; 81003; 96361; 96413; 96415; 36415; Q5103

== ENCOUNTER → 2018-08-03 | Outpatient (CLI) | payer MEDICARE, BC ==
--- NOTE | 2018-08-03 13:08 | SFUN ---
SLEEP CENTER FOLLOW UP NOTE DATE OF SERVICE: 08/03/2018 This 58-year-old gentleman has been followed in sleep center for treatment of obstructive sleep apnea-hypopnea syndrome. The patient continued to use his CPAP equipment every night for the whole night without significant problems related to mask fitting, pressure humidification. He is using nasal pillow mask and likes it. He tried to use a chin strap before but feels uncomfortable with that. I checked his CPAP unit. CPAP pressure is 14 cm of water. Usage is practically 100% of the night, average 5.6 hours. For the last 6 months leak, average leak is 54 L/minute. Apnea-hypopnea index only 2.5 which is absolutely normal. [place] Sleepiness Scale today is 9. MEDICATIONS: Isosorbide, atorvastatin, propranolol, bupropion, folic acid, metformin, benazepril, methotrexate, aspirin and D3 supplement, Inflectra. PHYSICAL EXAMINATION: During physical exam, patient in no distress. VITAL SIGNS: BP 156/85, HR 64, RR 16, height 5 feet 10 inches, weight 290 pounds, which is 4 pounds above weight during previous visit, body mass index 41.6, temperature 97.7, oxygen saturation room air 97%. HEENT: PERRLA, EOMI. Oropharynx extremely low position of soft palate. NECK: Supple, no JVD. Thyroid is not palpable. LUNGS: Clear to percussion and to auscultation. Good air exchange. No wheezing or rhonchi. HEART: S1, S2 regular. No murmurs, gallops, or rubs. ABDOMEN: Obese. EXTREMITIES: No clubbing or cyanosis. SERVICE CAR OPERATOR: Awake, alert, and oriented X3. Cranial nerves 2 to 7 intact. There is no fasciculation or atrophy. noted. No focal deficits observed. IMPRESSION: 1. Obstructive sleep apnea-hypopnea syndrome. Patient demonstrated great compliance with treatment benefitting from treatment. 2. Obesity. 3. Coronary artery disease, status post heart attack. 4. Hypertension. 5. History of rheumatoid arthritis. 6. Diabetes mellitus. 7. Hyperlipidemia. 8. Status post neck surgery. 9. Status post bilateral knee surgery for meniscus problems. PLAN: 1. Patient will continue to use CPAP equipment every night for the whole night with the same regimen. 2. Losing weight. 3. Sleep hygiene with regular time in bed for at least 8 hours. 4. No driving if feeling any sleepiness. 5. I would recommend to try different style of chin strap. 6. Follow-up visit in 1 year or earlier if patient has any problems. Thank you very much for allowing me to participate in management of your patient. Sincerely, Kye Camargo MD, PhD, FAASM Diplomat of [place] [employer] [place] [employer] Veneer Drier Tailer of [facility] [place] MMODL / [place]: [id number] /
== END ==
LOC: SLEEP 11:40
PROVIDERS: ATTEND Internal Medicine
DX: G47.33 Obstructive sleep apnea (adult) (pediatric) (principal); E66.9 Obesity, unspecified; I25.10 Atherosclerotic heart disease of native coronary artery without angina pectoris; I10 Essential (primary) hypertension; E11.9 Type 2 diabetes mellitus without complications; E78.5 Hyperlipidemia, unspecified; M06.9 Rheumatoid arthritis, unspecified; Z86.79 Personal history of other diseases of the circulatory system; Z98.890 Other specified postprocedural states; Z99.89 Dependence on other enabling machines and devices; Z79.82 Long term (current) use of aspirin; Z79.899 Other long term (current) drug therapy; Z79.84 Long term (current) use of oral hypoglycemic drugs

== ENCOUNTER → 2018-08-23 | Outpatient (CLI) | payer MEDICARE, BC ==
[~2018-08-23] MED LIST changes: +SODIUM CHLORIDE 0.9% 500 ML 500 ML in EMPTY BAG 1 BAG IV PRN; -SODIUM CHLORIDE 0.9% 500 ML in EMPTY BAG 1 BAG IV PRN
[2018-08-23 08:39] VITALS: RESP 16; TEMP 97.7
[2018-08-23 09:32] LABS: ALT 24 U/L (21-72); AST 35 U/L (17-59); Alkaline Phosphatase 49 U/L (38-126); Anion Gap 10 mmol/L; Blood Urea Nitrogen 15 mg/dL (9-20); Calcium 9.7 mg/dL (8.4-10.2); Carbon Dioxide 22 mmol/L (22-30); Chloride 106 mmol/L (98-107); Glucose 140 mg/dL (74-99); Sodium 138 mmol/L (137-145); Total Bilirubin 0.6 mg/dL (0.2-1.3); Total Protein 7.3 g/dL (6.3-8.2)
[2018-08-23 09:39] LABS: Basophils % (A) 1 %; Eosinophils # (A) 0.2 k/uL (0-0.7); Eosinophils % (A) 3 %; HCT 42.1 % (39.0-53.0); HGB 13.5 gm/dL (13.0-17.5); Lymphocytes # (A) 1.1 k/uL (1.0-4.8); Lymphocytes % (A) 21 %; MCH 30.5 pg (25.0-35.0); MCV 95.2 fL (80.0-100.0); Mean Platelet Volume 7.7; Monocytes # (A) 0.4 k/uL (0-1.0); Monocytes % (A) 7 %; Neutrophils # (A) 3.5 k/uL (1.3-7.7); Neutrophils % (A) 66 %; Platelet Count 203 k/uL (150-450); RBC 4.42 m/uL (4.30-5.90); RDW 15.9 % (11.5-15.5); WBC 5.4 k/uL (3.8-10.6)
[2018-08-23 09:44] LABS: Potassium 4.9 mmol/L (3.5-5.1)
[2018-08-23 10:18] VITALS: BP 127/66; PULSE 60
[2018-08-23 12:17] LABS: Appearance,Urine Clear (Clear); Bilirubin,Urine Negative (Negative); Blood,Urine Negative (Negative); Color,Urine Colorless; Glucose,Urine (UA) Negative (Negative); Ketones,Urine Negative (Negative); Leukocyte Esterase,Urine Negative (Negative); Nitrite,Urine Negative (Negative); Protein,Urine Negative (Negative); Specific Gravity,Urine 1.002 (1.001-1.035); Urobilinogen,Urine <2.0 mg/dL (<2.0)
[2018-08-23 14:18] LABS: Erythrocyte Sedimentation Rate 5 mm/hr (0-15)
== END | disposition home or self-care (01) ==
LOC: PROCWHC3 08:25
PROVIDERS: ATTEND Internal Medicine Rheumatology
DX: M06.89 Other specified rheumatoid arthritis, multiple sites (principal)
CPT/HCPCS: 80053; 85652; 85025; 81003; 96361; 96413; 96415; 36415; Q5103

== ENCOUNTER → 2018-10-04 | Outpatient (CLI) | payer MEDICARE, BC ==
[~2018-10-04] MED LIST changes: -diphenhydrAMINE 25 MG CAP PO NR; +diphenhydrAMINE 50 MG CAP PO NR
[2018-10-04 08:36] VITALS: RESP 16; TEMP 98
[2018-10-04 09:15] LABS: Albumin 4.3 g/dL (3.5-5.0); Calcium 9.6 mg/dL (8.4-10.2); Potassium 5.2 mmol/L (3.5-5.1); Total Bilirubin 0.6 mg/dL (0.2-1.3); Total Protein 7.3 g/dL (6.3-8.2)
[2018-10-04 09:58] LABS: Basophils % (A) 1 %; Eosinophils # (A) 0.2 k/uL (0-0.7); Eosinophils % (A) 5 %; HCT 45.7 % (39.0-53.0); HGB 14.6 gm/dL (13.0-17.5); Lymphocytes # (A) 1.5 k/uL (1.0-4.8); Lymphocytes % (A) 35 %; MCH 30.8 pg (25.0-35.0); MCV 96.5 fL (80.0-100.0); Monocytes # (A) 0.3 k/uL (0-1.0); Monocytes % (A) 8 %; Neutrophils % (A) 49 %; Platelet Count 171 k/uL (150-450); RBC 4.74 m/uL (4.30-5.90); WBC 4.1 k/uL (3.8-10.6)
[2018-10-04 10:19] VITALS: BP 104/58; PULSE 54
[2018-10-04 10:53] LABS: Bilirubin, Delta 0.3 mg/dL (0.0-0.2); Bilirubin,Unconjugated 0.3 mg/dL (0.0-1.1)
[2018-10-04 12:26] LABS: Appearance,Urine Clear (Clear); Bilirubin,Urine Negative (Negative); Blood,Urine Negative (Negative); Color,Urine Light Yellow; Glucose,Urine (UA) Negative (Negative); Ketones,Urine Negative (Negative); Leukocyte Esterase,Urine Negative (Negative); Nitrite,Urine Negative (Negative); Protein,Urine Negative (Negative); Urobilinogen,Urine <2.0 mg/dL (<2.0)
[2018-10-04 12:43] LABS: Erythrocyte Sedimentation Rate 8 mm/hr (0-15)
[2018-10-04 17:36] LABS: Hemoglobin A1C 6.7 % (4.0-6.0)
== END | disposition home or self-care (01) ==
LOC: PROCWHC3 08:17
PROVIDERS: ATTEND Family Medicine
DX: M06.89 Other specified rheumatoid arthritis, multiple sites (principal); E78.5 Hyperlipidemia, unspecified; E11.9 Type 2 diabetes mellitus without complications; T50.905D Adverse effect of unspecified drugs, medicaments and biological substances, subsequent encounter
CPT/HCPCS: 80061; 80053; 85652; 82248; 85025; 81003; 83036; 96361; 96413; 96415; 36415; Q5103

== ENCOUNTER → 2018-11-15 | Outpatient (CLI) | payer MEDICARE, BC ==
[~2018-11-15] MED LIST changes: -ACETAMINOPHEN TAB 325 MG TAB PO NR; +ACETAMINOPHEN TAB 325 MG TAB PO ONE; -diphenhydrAMINE 50 MG CAP PO NR; +diphenhydrAMINE 50 MG CAP PO ONE; +diphenhydrAMINE 50 MG/ML 1 ML VIAL IVP ONE
[2018-11-15 08:47] VITALS: RESP 16; TEMP 16
[2018-11-15 09:33] LABS: Basophils # (A) 0.1 k/uL (0-0.2); Basophils % (A) 1 %; Eosinophils # (A) 0.3 k/uL (0-0.7); Eosinophils % (A) 5 %; HCT 43.6 % (39.0-53.0); HGB 13.8 gm/dL (13.0-17.5); Lymphocytes # (A) 1.2 k/uL (1.0-4.8); Lymphocytes % (A) 22 %; MCHC 31.7 g/dL (31.0-37.0); MCV 94.8 fL (80.0-100.0); Mean Platelet Volume 7.5; Monocytes # (A) 0.5 k/uL (0-1.0); Monocytes % (A) 8 %; Neutrophils # (A) 3.4 k/uL (1.3-7.7); Neutrophils % (A) 62 %; Platelet Count 283 k/uL (150-450); RDW 14.2 % (11.5-15.5); WBC 5.5 k/uL (3.8-10.6)
[2018-11-15 09:57] LABS: ALT 22 U/L (21-72); AST 21 U/L (17-59); Albumin 3.8 g/dL (3.5-5.0); Alkaline Phosphatase 63 U/L (38-126); Anion Gap 9 mmol/L; Bilirubin, Delta 0.5 mg/dL (0.0-0.2); Bilirubin,Unconjugated 0.2 mg/dL (0.0-1.1); Blood Urea Nitrogen 12 mg/dL (9-20); Calcium 9.3 mg/dL (8.4-10.2); Carbon Dioxide 24 mmol/L (22-30); Chloride 105 mmol/L (98-107); Glucose 112 mg/dL (74-99); Sodium 138 mmol/L (137-145); Total Bilirubin 0.7 mg/dL (0.2-1.3); Total Protein 6.8 g/dL (6.3-8.2)
[2018-11-15 10:19] LABS: Potassium 4.7 mmol/L (3.5-5.1)
[2018-11-15 10:46] VITALS: BP 114/78; PULSE 80
[2018-11-15 11:12] LABS: Appearance,Urine Clear (Clear); Bilirubin,Urine Negative (Negative); Blood,Urine Moderate (Negative); Color,Urine Light Yellow; Glucose,Urine (UA) Negative (Negative); Ketones,Urine Negative (Negative); Leukocyte Esterase,Urine Small (Negative); Mucus,Urine Rare /hpf; Nitrite,Urine Negative (Negative); PH, Urine 5.5 (5.0-8.0); Protein,Urine Negative (Negative); RBC,Urine 3 /hpf (0-5); Specific Gravity,Urine 1.004 (1.001-1.035); Squamous Epithelial Cell,Urine <1 /hpf (0-4); Urobilinogen,Urine <2.0 mg/dL (<2.0); WBC,Urine 10 /hpf (0-5)
[2018-11-15 12:19] LABS: Erythrocyte Sedimentation Rate 24 mm/hr (0-15)
== END ==
LOC: PROCWHC3 08:03
PROVIDERS: ATTEND Internal Medicine Rheumatology
DX: M06.89 Other specified rheumatoid arthritis, multiple sites (principal)
CPT/HCPCS: 80053; 85652; 82248; 85025; 81001; 96360; 96413; 96415; 36415; Q5103

== ENCOUNTER → 2018-11-23 | Outpatient (CLI) | payer MEDICARE, BC ==
--- NOTE | 2018-11-23 12:46 | SFUN ---
SLEEP CENTER FOLLOW UP NOTE DATE OF SERVICE: 11/23/2018 A 58-year-old gentleman who has been followed in the Sleep Center for treatment of obstructive sleep apnea-hypopnea syndrome. Previous visit was in August 03, 2018 and during this visit, patient was fine. He was able to use his machine without any significant problems with a normal apnea-hypopnea index 2.5. Since that time, patient continued to lose his weight and today he lost about 40 pounds since that time when we did the sleep study, which may indicate that the pressure in the machine is higher than he needs and in September of this year he developed a burning sensation in his nose on the right side of his nose and he was not able to use his machine since that time. Today, his [place] Sleepiness Scale is 7. I checked his CPAP unit. For the last 6 months patient used it 125 nights, average usage 5.8 hours. Pressure is 14 cm of water. Significant leak, 53L/minute. Apnea- hypopnea index normal 2.4. MEDICATIONS: Isosorbide, atorvastatin, propranolol, bupropion, folic acid, metformin, benazepril, methotrexate, aspirin, D3 supplement, . PHYSICAL EXAM: Patient in no distress. BP 127/82, HR 62, RR 16, weight 258 pounds. Temperature 98.5, oxygen saturation at room air 97%. OROPHARYNX: Extremely low position of soft palate. ABDOMEN: Slightly obese. Neck Supple, no JVD. Thyroid is not palpable. LUNGS Clear to percussion and to auscultation. Good air exchange. No wheezing or rhonchi. HEART S1, S2 regular. No murmurs, gallops, or rubs. EXTREMITIES No clubbing or cyanosis. MEDICAL CLAIMS PROCESSOR Awake, alert, and oriented X3. Cranial nerves 2 to 7 intact. There is no fasciculation or atrophy. noted. No focal deficits observed. IMPRESSION: 1. Obstructive sleep apnea-hypopnea syndrome in mild range by results of sleep study which was done in 2016. At that time, apnea-hypopnea index was 12.2, but in REM sleep apnea-hypopnea index was extremely high at 73. Since that time, patient has lost 40 pounds and according to patient's after losing weight, he stopped snoring at night, even while he is not using his CPAP for the last 2 months. 2. Obesity, patient lost 40 pounds since previous titration. 3. Coronary artery disease, status post heart attack. 4. Hypertension. 5. History of rheumatoid arthritis. 6. Diabetes mellitus. 7. Hyperlipidemia. 8. Status post neck surgery. 9. Status post bilateral knee surgery for meniscus problems. PLAN: 1. Polysomnogram for evaluation of patient breathing at the present time after he lost 40 pounds. 2. Patient will not use CPAP treatment at the present time because after losing weight, possibly pressure in the machine too high for him now and may create side effects. 3. Continue losing weight. 4. Precautions related to driving. No driving if feeling sleepiness. 5. I will see patient for followup visit after we will do the sleep study to discuss results of the test and plan of the treatment. Thank you very much for allowing me to participate in the management of your patient. Sincerely, Kye Camargo MD, PhD, FAASM Diplomat of [place] [employer] [place] [employer] Relay Associate of [facility] [place] [facility]ODL / [place]: [id number] /
== END | disposition home or self-care (01) ==
LOC: SLEEP 11:05
PROVIDERS: ATTEND Internal Medicine
DX: G47.33 Obstructive sleep apnea (adult) (pediatric) (principal); R63.4 Abnormal weight loss; E66.9 Obesity, unspecified; I25.10 Atherosclerotic heart disease of native coronary artery without angina pectoris; I25.2 Old myocardial infarction; I10 Essential (primary) hypertension; E11.9 Type 2 diabetes mellitus without complications; E78.5 Hyperlipidemia, unspecified; Z98.890 Other specified postprocedural states; Z79.82 Long term (current) use of aspirin; Z99.89 Dependence on other enabling machines and devices; Z79.899 Other long term (current) drug therapy; Z79.84 Long term (current) use of oral hypoglycemic drugs

== ENCOUNTER → 2018-12-27 | Outpatient (CLI) | payer MEDICARE, BC ==
[2018-12-27 11:54] VITALS: RESP 16; TEMP 98.1
[2018-12-27 13:14] VITALS: BP 129/70; PULSE 66
[2018-12-27 14:43] LABS: Appearance,Urine Turbid (Clear); Bacteria,Urine Moderate /hpf; Bilirubin,Urine Negative (Negative); Blood,Urine Small (Negative); Color,Urine Light Yellow; Glucose,Urine (UA) Negative (Negative); Ketones,Urine Negative (Negative); Leukocyte Esterase,Urine Large (Negative); Mucus,Urine Rare /hpf; Nitrite,Urine Positive (Negative); PH, Urine 5.5 (5.0-8.0); Protein,Urine Trace (Negative); RBC,Urine 5 /hpf (0-5); Specific Gravity,Urine 1.011 (1.001-1.035); Urobilinogen,Urine <2.0 mg/dL (<2.0); WBC,Urine >182 /hpf (0-5)
== END ==
LOC: PROCWHC3 11:28
PROVIDERS: ATTEND Family Medicine
DX: M06.89 Other specified rheumatoid arthritis, multiple sites (principal)
CPT/HCPCS: 81001; 96361; 96413; 96415; Q5103

== ENCOUNTER → 2019-02-07 | Outpatient (CLI) | payer MEDICARE, BC ==
[2019-02-07 08:57] VITALS: RESP 16; TEMP 98
[2019-02-07 09:03] LABS: Basophils % (A) 1 %; Eosinophils # (A) 0.1 k/uL (0-0.7); Eosinophils % (A) 3 %; HCT 41.1 % (39.0-53.0); HGB 13.4 gm/dL (13.0-17.5); Lymphocytes # (A) 1.4 k/uL (1.0-4.8); Lymphocytes % (A) 27 %; MCH 29.9 pg (25.0-35.0); MCHC 32.6 g/dL (31.0-37.0); MCV 91.8 fL (80.0-100.0); Mean Platelet Volume 7.2; Monocytes # (A) 0.4 k/uL (0-1.0); Monocytes % (A) 8 %; Neutrophils # (A) 3.2 k/uL (1.3-7.7); Neutrophils % (A) 60 %; Platelet Count 211 k/uL (150-450); RBC 4.48 m/uL (4.30-5.90); RDW 15.8 % (11.5-15.5); WBC 5.3 k/uL (3.8-10.6)
[2019-02-07 09:13] LABS: ALT 22 U/L (21-72); AST 17 U/L (17-59); African American GFR (CKD) >90 (>60 ml/min/1.73 sqM); Albumin 3.8 g/dL (3.5-5.0); Alkaline Phosphatase 73 U/L (38-126); Anion Gap 7 mmol/L; Bilirubin, Delta 0.1 mg/dL (0.0-0.2); Bilirubin,Unconjugated 0.3 mg/dL (0.0-1.1); Blood Urea Nitrogen 15 mg/dL (9-20); Calcium 8.9 mg/dL (8.4-10.2); Carbon Dioxide 25 mmol/L (22-30); Chloride 107 mmol/L (98-107); Glucose 129 mg/dL (74-99); Potassium 4.3 mmol/L (3.5-5.1); Sodium 139 mmol/L (137-145); Total Bilirubin 0.4 mg/dL (0.2-1.3); Total Protein 6.6 g/dL (6.3-8.2)
[2019-02-07 09:55] VITALS: BP 129/75; PULSE 55
[2019-02-07 11:47] LABS: Appearance,Urine Cloudy (Clear); Bacteria,Urine Moderate /hpf; Bilirubin,Urine Negative (Negative); Blood,Urine Small (Negative); Color,Urine Light Yellow; Glucose,Urine (UA) Negative (Negative); Ketones,Urine Negative (Negative); Leukocyte Esterase,Urine Large (Negative); Mucus,Urine Rare /hpf; Nitrite,Urine Positive (Negative); PH, Urine 5.5 (5.0-8.0); Protein,Urine Negative (Negative); RBC,Urine 4 /hpf (0-5); Specific Gravity,Urine 1.006 (1.001-1.035); Squamous Epithelial Cell,Urine <1 /hpf (0-4); Urobilinogen,Urine <2.0 mg/dL (<2.0); WBC,Urine >182 /hpf (0-5)
[2019-02-07 13:03] LABS: Erythrocyte Sedimentation Rate 9 mm/hr (0-15)
== END | disposition home or self-care (01) ==
LOC: PROCWHC3 08:07
PROVIDERS: ATTEND Internal Medicine Rheumatology
DX: M06.89 Other specified rheumatoid arthritis, multiple sites (principal)
CPT/HCPCS: 80053; 85652; 82248; 85025; 81001; 96361; 96413; 96415; 36415; Q5103

== ENCOUNTER → 2019-03-21 | Outpatient (CLI) | payer MEDICARE, BC ==
[~2019-03-21] MED LIST changes: +diphenhydrAMINE 25 MG CAP PO ONE; -diphenhydrAMINE 50 MG CAP PO ONE
[2019-03-21 08:19] VITALS: RESP 16; TEMP 98.6
[2019-03-21 08:43] LABS: Anisocytosis Slight; Basophils % (A) 1 %; Eosinophils # (A) 0.3 k/uL (0-0.7); Eosinophils % (A) 4 %; HCT 43.1 % (39.0-53.0); HGB 14.3 gm/dL (13.0-17.5); Lymphocytes # (A) 1.5 k/uL (1.0-4.8); Lymphocytes % (A) 27 %; MCHC 33.1 g/dL (31.0-37.0); MCV 93.6 fL (80.0-100.0); Mean Platelet Volume 7.4; Monocytes # (A) 0.4 k/uL (0-1.0); Monocytes % (A) 8 %; Neutrophils # (A) 3.4 k/uL (1.3-7.7); Neutrophils % (A) 58 %; Platelet Count 149 k/uL (150-450); RBC 4.61 m/uL (4.30-5.90); RDW 17.4 % (11.5-15.5); WBC 5.8 k/uL (3.8-10.6)
[2019-03-21 08:57] LABS: ALT 22 U/L (21-72); AST 19 U/L (17-59); African American GFR (CKD) >90 (>60 ml/min/1.73 sqM); Albumin 3.9 g/dL (3.5-5.0); Alkaline Phosphatase 72 U/L (38-126); Anion Gap 7 mmol/L; Bilirubin, Delta 0.2 mg/dL (0.0-0.2); Bilirubin,Unconjugated 0.2 mg/dL (0.0-1.1); Blood Urea Nitrogen 14 mg/dL (9-20); Calcium 8.8 mg/dL (8.4-10.2); Carbon Dioxide 26 mmol/L (22-30); Chloride 104 mmol/L (98-107); Glucose 132 mg/dL (74-99); Potassium 4.1 mmol/L (3.5-5.1); Sodium 137 mmol/L (137-145); Total Bilirubin 0.4 mg/dL (0.2-1.3); Total Protein 6.8 g/dL (6.3-8.2)
[2019-03-21 10:00] VITALS: BP 167/88; PULSE 80
[2019-03-21 12:20] LABS: Appearance,Urine Clear (Clear); Bacteria,Urine Occasional /hpf; Bilirubin,Urine Negative (Negative); Blood,Urine Negative (Negative); Color,Urine Colorless; Glucose,Urine (UA) Negative (Negative); Ketones,Urine Negative (Negative); Leukocyte Esterase,Urine Trace (Negative); Nitrite,Urine Negative (Negative); PH, Urine 6.5 (5.0-8.0); Protein,Urine Negative (Negative); Specific Gravity,Urine 1.005 (1.001-1.035); Urobilinogen,Urine <2.0 mg/dL (<2.0); WBC,Urine 10 /hpf (0-5)
[2019-03-21 13:35] LABS: Erythrocyte Sedimentation Rate 8 mm/hr (0-15)
== END ==
LOC: PROCWHC3 08:01
PROVIDERS: ATTEND Internal Medicine Rheumatology
DX: M06.89 Other specified rheumatoid arthritis, multiple sites (principal)
CPT/HCPCS: 80053; 85652; 82248; 85025; 81001; 96361; 96413; 96415; 36415; Q5103

== ENCOUNTER → 2019-05-02 | Outpatient (CLI) | payer MEDICARE, BC ==
[~2019-05-02] MED LIST changes: +ACETAMINOPHEN TAB 325 MG TAB PO NR; -ACETAMINOPHEN TAB 325 MG TAB PO ONE; +diphenhydrAMINE 25 MG CAP PO NR; -diphenhydrAMINE 25 MG CAP PO ONE; +diphenhydrAMINE 50 MG/ML 1 ML VIAL IVP NR; -diphenhydrAMINE 50 MG/ML 1 ML VIAL IVP ONE
[2019-05-02 08:36] VITALS: RESP 16; TEMP 98.6
[2019-05-02 08:46] LABS: Anisocytosis Slight; Basophils # (A) 0.1 k/uL (0-0.2); Basophils % (A) 1 %; Eosinophils # (A) 0.2 k/uL (0-0.7); Eosinophils % (A) 4 %; HCT 42.4 % (39.0-53.0); HGB 13.6 gm/dL (13.0-17.5); Lymphocytes # (A) 1.4 k/uL (1.0-4.8); Lymphocytes % (A) 29 %; MCH 29.8 pg (25.0-35.0); MCHC 32.1 g/dL (31.0-37.0); MCV 92.9 fL (80.0-100.0); Mean Platelet Volume 7.1; Monocytes # (A) 0.4 k/uL (0-1.0); Monocytes % (A) 8 %; Neutrophils # (A) 2.8 k/uL (1.3-7.7); Neutrophils % (A) 57 %; Platelet Count 177 k/uL (150-450); RBC 4.56 m/uL (4.30-5.90); RDW 16.5 % (11.5-15.5); WBC 4.9 k/uL (3.8-10.6)
[2019-05-02 09:33] LABS: ALT 33 U/L (21-72); AST 31 U/L (17-59); African American GFR (CKD) >90 (>60 ml/min/1.73 sqM); Alkaline Phosphatase 71 U/L (38-126); Anion Gap 10 mmol/L; Bilirubin, Delta 0.4 mg/dL (0.0-0.2); Bilirubin,Unconjugated 0.2 mg/dL (0.0-1.1); Blood Urea Nitrogen 18 mg/dL (9-20); Calcium 9.5 mg/dL (8.4-10.2); Carbon Dioxide 25 mmol/L (22-30); Chloride 102 mmol/L (98-107); Glucose 142 mg/dL (74-99); Sodium 137 mmol/L (137-145); Total Bilirubin 0.6 mg/dL (0.2-1.3); Total Protein 7.1 g/dL (6.3-8.2)
[2019-05-02 09:42] LABS: Potassium 4.8 mmol/L (3.5-5.1)
[2019-05-02 09:55] VITALS: BP 132/80; PULSE 59
[2019-05-02 13:35] LABS: Erythrocyte Sedimentation Rate 9 mm/hr (0-15)
[2019-05-02 14:57] LABS: Appearance,Urine Clear (Clear); Bilirubin,Urine Negative (Negative); Blood,Urine Negative (Negative); Color,Urine Light Yellow; Glucose,Urine (UA) Negative (Negative); Ketones,Urine Negative (Negative); Leukocyte Esterase,Urine Negative (Negative); Nitrite,Urine Negative (Negative); PH, Urine 5.5 (5.0-8.0); Protein,Urine Negative (Negative); Specific Gravity,Urine 1.009 (1.001-1.035); Urobilinogen,Urine <2.0 mg/dL (<2.0)
== END | disposition home or self-care (01) ==
LOC: PROCWHC3 08:10
PROVIDERS: ATTEND Internal Medicine Rheumatology
DX: M06.89 Other specified rheumatoid arthritis, multiple sites (principal)
CPT/HCPCS: 80053; 85652; 82248; 85025; 81003; 96361; 96413; 96415; 36415; Q5103

== ENCOUNTER → 2019-06-13 | Outpatient (CLI) | payer MEDICARE, BC ==
[~2019-06-13] MED LIST changes: -ACETAMINOPHEN TAB 325 MG TAB PO NR; +ACETAMINOPHEN TAB 325 MG TAB PO ONE; -diphenhydrAMINE 25 MG CAP PO NR; +diphenhydrAMINE 25 MG CAP PO ONE; -diphenhydrAMINE 50 MG/ML 1 ML VIAL IVP NR
[2019-06-13 08:28] VITALS: TEMP 97.9
[2019-06-13 08:56] LABS: Basophils # (A) 0.1 k/uL (0-0.2); Basophils % (A) 2 %; Eosinophils # (A) 0.2 k/uL (0-0.7); Eosinophils % (A) 4 %; HGB 15.1 gm/dL (13.0-17.5); Lymphocytes % (A) 34 %; MCH 31.3 pg (25.0-35.0); MCHC 32.8 g/dL (31.0-37.0); MCV 95.5 fL (80.0-100.0); Mean Platelet Volume 7.4; Monocytes # (A) 0.4 k/uL (0-1.0); Monocytes % (A) 7 %; Neutrophils # (A) 3.1 k/uL (1.3-7.7); Neutrophils % (A) 51 %; Platelet Count 188 k/uL (150-450); RBC 4.81 m/uL (4.30-5.90); RDW 15.8 % (11.5-15.5)
[2019-06-13 09:08] VITALS: RESP 16
[2019-06-13 09:46] VITALS: BP 96/60; PULSE 54
[2019-06-13 10:37] LABS: Erythrocyte Sedimentation Rate 2 mm/hr (0-15)
[2019-06-13 11:42] LABS: Appearance,Urine Clear (Clear); Bilirubin,Urine Negative (Negative); Blood,Urine Negative (Negative); Color,Urine Colorless; Glucose,Urine (UA) Negative (Negative); Ketones,Urine Negative (Negative); Leukocyte Esterase,Urine Negative (Negative); Nitrite,Urine Negative (Negative); Protein,Urine Negative (Negative); Specific Gravity,Urine 1.005 (1.001-1.035); Urobilinogen,Urine <2.0 mg/dL (<2.0)
[2019-06-13 13:44] LABS: Albumin 4.4 g/dL (3.5-5.0); Bilirubin, Delta 0.5 mg/dL (0.0-0.2); Bilirubin,Unconjugated 0.1 mg/dL (0.0-1.1); Calcium 9.6 mg/dL (8.4-10.2); Total Bilirubin 0.6 mg/dL (0.2-1.3); Total Protein 7.8 g/dL (6.3-8.2)
[2019-06-13 13:59] LABS: Potassium 5.3 mmol/L (3.5-5.1)
== END | disposition home or self-care (01) ==
LOC: PROCWHC3 08:12
PROVIDERS: ATTEND Internal Medicine Rheumatology
DX: M06.89 Other specified rheumatoid arthritis, multiple sites (principal)
CPT/HCPCS: 80053; 85652; 82248; 85025; 81003; 96361; 96413; 96415; 36415; Q5103

== ENCOUNTER → 2019-07-25 | Outpatient (CLI) | payer MEDICARE, BC ==
[~2019-07-25] MED LIST changes: +ACETAMINOPHEN TAB 325 MG TAB PO NR; -ACETAMINOPHEN TAB 325 MG TAB PO ONE; +INFLIXIMAB-DYYB 500 MG in SODIUM CHLORIDE 0.9% 200 ML IV NR; -INFLIXIMAB-DYYB 500 MG in SODIUM CHLORIDE 0.9% 250 ML IV NR; +diphenhydrAMINE 25 MG CAP PO NR; -diphenhydrAMINE 25 MG CAP PO ONE; +diphenhydrAMINE 50 MG/ML 1 ML VIAL IVP NR
[2019-07-25 08:21] VITALS: RESP 16; TEMP 97.8
[2019-07-25 08:53] LABS: Albumin 4.2 g/dL (3.5-5.0); Bilirubin, Delta 0.3 mg/dL (0.0-0.2); Bilirubin,Unconjugated 0.2 mg/dL (0.0-1.1); Calcium 9.9 mg/dL (8.4-10.2); Potassium 4.6 mmol/L (3.5-5.1); Total Bilirubin 0.5 mg/dL (0.2-1.3); Total Protein 7.3 g/dL (6.3-8.2)
[2019-07-25 09:12] LABS: Basophils # (A) 0.1 k/uL (0-0.2); Basophils % (A) 1 %; Eosinophils # (A) 0.3 k/uL (0-0.7); Eosinophils % (A) 3 %; HCT 46.6 % (39.0-53.0); HGB 15.6 gm/dL (13.0-17.5); Lymphocytes # (A) 3.6 k/uL (1.0-4.8); Lymphocytes % (A) 34 %; MCH 32.3 pg (25.0-35.0); MCHC 33.5 g/dL (31.0-37.0); MCV 96.3 fL (80.0-100.0); Mean Platelet Volume 6.7; Monocytes # (A) 0.7 k/uL (0-1.0); Monocytes % (A) 7 %; Neutrophils # (A) 5.7 k/uL (1.3-7.7); Neutrophils % (A) 54 %; Platelet Count 262 k/uL (150-450); RBC 4.84 m/uL (4.30-5.90); RDW 15.9 % (11.5-15.5); WBC 10.5 k/uL (3.8-10.6)
[2019-07-25 09:19] VITALS: PULSE 58
[2019-07-25 09:30] VITALS: BP 95/69
[2019-07-25 11:00] LABS: Appearance,Urine Clear (Clear); Bilirubin,Urine Negative (Negative); Blood,Urine Negative (Negative); Color,Urine Light Yellow; Glucose,Urine (UA) Negative (Negative); Ketones,Urine Negative (Negative); Leukocyte Esterase,Urine Negative (Negative); Nitrite,Urine Negative (Negative); Protein,Urine Negative (Negative); Specific Gravity,Urine 1.007 (1.001-1.035); Urobilinogen,Urine <2.0 mg/dL (<2.0)
[2019-07-25 12:43] LABS: Erythrocyte Sedimentation Rate 2 mm/hr (0-15)
== END | disposition home or self-care (01) ==
LOC: PROCWHC3 08:00
PROVIDERS: ATTEND Internal Medicine Rheumatology
DX: M06.89 Other specified rheumatoid arthritis, multiple sites (principal)
CPT/HCPCS: 80053; 85652; 82248; 85025; 81003; 96361; 96413; 96415; 36415; Q5103

== ENCOUNTER → 2019-09-07 | Outpatient (CLI) | payer MEDICARE, BC ==
[~2019-09-07] MED LIST changes: -ACETAMINOPHEN TAB 325 MG TAB PO NR; +ACETAMINOPHEN TAB 325 MG TAB PO ONE; -INFLIXIMAB-DYYB 500 MG in SODIUM CHLORIDE 0.9% 200 ML IV NR; +INFLIXIMAB-DYYB 500 MG in SODIUM CHLORIDE 0.9% 250 ML IV NR; -diphenhydrAMINE 25 MG CAP PO NR; +diphenhydrAMINE 25 MG CAP PO ONE; -diphenhydrAMINE 50 MG/ML 1 ML VIAL IVP NR; +diphenhydrAMINE 50 MG/ML 1 ML VIAL IVP ONE
[2019-09-07 10:43] VITALS: RESP 18; TEMP 98
[2019-09-07 11:39] LABS: Basophils # (A) 0.1 k/uL (0-0.2); Basophils % (A) 1 %; Eosinophils # (A) 0.2 k/uL (0-0.7); Eosinophils % (A) 4 %; HCT 43.4 % (39.0-53.0); HGB 14.2 gm/dL (13.0-17.5); Lymphocytes # (A) 1.3 k/uL (1.0-4.8); Lymphocytes % (A) 26 %; MCH 31.9 pg (25.0-35.0); MCHC 32.6 g/dL (31.0-37.0); MCV 97.9 fL (80.0-100.0); Mean Platelet Volume 8.5; Monocytes # (A) 0.5 k/uL (0-1.0); Monocytes % (A) 10 %; Neutrophils # (A) 2.9 k/uL (1.3-7.7); Neutrophils % (A) 58 %; Platelet Count 202 k/uL (150-450); RBC 4.43 m/uL (4.30-5.90); RDW 15.3 % (11.5-15.5); WBC 5.1 k/uL (3.8-10.6)
[2019-09-07 11:52] LABS: Bilirubin, Delta 0.3 mg/dL (0.0-0.2); Bilirubin,Unconjugated 0.2 mg/dL (0.0-1.1); Calcium 9.1 mg/dL (8.4-10.2); Potassium 4.6 mmol/L (3.5-5.1); Total Bilirubin 0.5 mg/dL (0.2-1.3)
[2019-09-07 12:13] VITALS: BP 113/65; PULSE 60
[2019-09-07 14:10] LABS: Appearance,Urine Clear (Clear); Bilirubin,Urine Negative (Negative); Blood,Urine Negative (Negative); Color,Urine Light Yellow; Glucose,Urine (UA) 3+ (Negative); Ketones,Urine Negative (Negative); Leukocyte Esterase,Urine Negative (Negative); Nitrite,Urine Negative (Negative); PH, Urine 5.5 (5.0-8.0); Protein,Urine Negative (Negative); Specific Gravity,Urine 1.009 (1.001-1.035); Urobilinogen,Urine <2.0 mg/dL (<2.0)
[2019-09-07 14:54] LABS: Erythrocyte Sedimentation Rate 4 mm/hr (0-15)
== END | disposition home or self-care (01) ==
LOC: PROCWHC3 10:16
PROVIDERS: ATTEND Internal Medicine Rheumatology
DX: M06.89 Other specified rheumatoid arthritis, multiple sites (principal)
CPT/HCPCS: 80053; 85652; 82248; 85025; 81003; 96361; 96413; 96415; 36415; Q5103

== ENCOUNTER → 2019-12-05 | Outpatient (CLI) | payer BC, MEDICARE ==
[~2019-12-05] MED LIST changes: +ACETAMINOPHEN TAB 325 MG TAB PO NR; -ACETAMINOPHEN TAB 325 MG TAB PO ONE; -diphenhydrAMINE 25 MG CAP PO ONE; +diphenhydrAMINE 50 MG CAP PO NR; +diphenhydrAMINE 50 MG/ML 1 ML VIAL IVP NR; -diphenhydrAMINE 50 MG/ML 1 ML VIAL IVP ONE
[2019-12-05 08:29] VITALS: RESP 16; TEMP 98.2
[2019-12-05 08:39] LABS: Basophils % (A) 1 %; Eosinophils # (A) 0.2 k/uL (0-0.7); Eosinophils % (A) 3 %; HCT 45.5 % (39.0-53.0); HGB 15.2 gm/dL (13.0-17.5); Lymphocytes # (A) 1.6 k/uL (1.0-4.8); Lymphocytes % (A) 26 %; MCH 31.9 pg (25.0-35.0); MCHC 33.4 g/dL (31.0-37.0); MCV 95.4 fL (80.0-100.0); Mean Platelet Volume 8.6; Monocytes # (A) 0.5 k/uL (0-1.0); Monocytes % (A) 8 %; Neutrophils # (A) 3.6 k/uL (1.3-7.7); Neutrophils % (A) 60 %; Platelet Count 211 k/uL (150-450); RBC 4.77 m/uL (4.30-5.90); RDW 14.5 % (11.5-15.5)
[2019-12-05 08:59] LABS: Bilirubin,Unconjugated 0.3 mg/dL (0.0-1.1); Calcium 9.6 mg/dL (8.4-10.2); Potassium 4.7 mmol/L (3.5-5.1); Total Bilirubin 0.3 mg/dL (0.2-1.3); Total Protein 7.2 g/dL (6.3-8.2)
[2019-12-05 09:17] VITALS: BP 97/65; PULSE 62
[2019-12-05 10:40] LABS: Erythrocyte Sedimentation Rate 4 mm/hr (0-15)
[2019-12-05 10:56] LABS: Appearance,Urine Clear (Clear); Bilirubin,Urine Negative (Negative); Blood,Urine Negative (Negative); Color,Urine Light Yellow; Glucose,Urine (UA) Negative (Negative); Ketones,Urine Negative (Negative); Leukocyte Esterase,Urine Negative (Negative); Nitrite,Urine Negative (Negative); PH, Urine 5.5 (5.0-8.0); Protein,Urine Negative (Negative); Specific Gravity,Urine 1.008 (1.001-1.035); Urobilinogen,Urine <2.0 mg/dL (<2.0)
== END | disposition home or self-care (01) ==
LOC: PROCWHC3 07:14
PROVIDERS: ATTEND Urology
DX: M06.89 Other specified rheumatoid arthritis, multiple sites (principal)
CPT/HCPCS: 80053; 85652; 82248; 85025; 81003; 96361; 96413; 96415; 36415; Q5103

== ENCOUNTER → 2020-01-16 | Outpatient (CLI) | payer MEDICARE ==
[2020-01-16 08:21] VITALS: TEMP 98.4
[2020-01-16 09:43] VITALS: RESP 18
[2020-01-16 10:32] VITALS: BP 104/65; PULSE 59
[2020-01-16 13:20] LABS: Appearance,Urine Clear (Clear); Bilirubin,Urine Negative (Negative); Blood,Urine Negative (Negative); Color,Urine Light Yellow; Glucose,Urine (UA) Negative (Negative); Ketones,Urine Negative (Negative); Leukocyte Esterase,Urine Negative (Negative); Nitrite,Urine Negative (Negative); Protein,Urine Negative (Negative); Specific Gravity,Urine 1.008 (1.001-1.035); Urobilinogen,Urine <2.0 mg/dL (<2.0)
== END | disposition home or self-care (01) ==
LOC: PROCWHC3 08:07
PROVIDERS: ATTEND Internal Medicine Rheumatology
DX: M06.89 Other specified rheumatoid arthritis, multiple sites (principal)
CPT/HCPCS: 81003; 96361; 96413; 96415; Q5103

== ENCOUNTER → 2020-02-27 | Outpatient (CLI) | payer MEDICARE ==
[2020-02-27 07:21] VITALS: TEMP 98.5
[2020-02-27 07:57] LABS: Basophils % (A) 1 %; Eosinophils # (A) 0.2 k/uL (0-0.7); Eosinophils % (A) 4 %; HCT 43.2 % (39.0-53.0); HGB 13.9 gm/dL (13.0-17.5); Lymphocytes # (A) 1.7 k/uL (1.0-4.8); Lymphocytes % (A) 28 %; MCH 31.5 pg (25.0-35.0); MCHC 32.3 g/dL (31.0-37.0); MCV 97.5 fL (80.0-100.0); Mean Platelet Volume 8.4; Monocytes # (A) 0.4 k/uL (0-1.0); Monocytes % (A) 7 %; Neutrophils # (A) 3.4 k/uL (1.3-7.7); Neutrophils % (A) 58 %; Platelet Count 198 k/uL (150-450); RBC 4.43 m/uL (4.30-5.90); WBC 5.9 k/uL (3.8-10.6)
[2020-02-27 08:04] LABS: Albumin 3.8 g/dL (3.5-5.0); Bilirubin, Delta 0.1 mg/dL (0.0-0.2); Bilirubin,Unconjugated 0.3 mg/dL (0.0-1.1); Calcium 9.3 mg/dL (8.4-10.2); Potassium 4.7 mmol/L (3.5-5.1); Total Bilirubin 0.4 mg/dL (0.2-1.3); Total Protein 6.8 g/dL (6.3-8.2)
[2020-02-27 08:39] VITALS: RESP 16
[2020-02-27 09:11] VITALS: BP 121/76; PULSE 67
[2020-02-27 10:14] LABS: Erythrocyte Sedimentation Rate 5 mm/hr (0-15)
[2020-02-27 11:36] LABS: Appearance,Urine Clear (Clear); Bilirubin,Urine Negative (Negative); Blood,Urine Negative (Negative); Color,Urine Yellow; Glucose,Urine (UA) Negative (Negative); Ketones,Urine Negative (Negative); Leukocyte Esterase,Urine Negative (Negative); Nitrite,Urine Negative (Negative); PH, Urine 5.5 (5.0-8.0); Protein,Urine Negative (Negative); Specific Gravity,Urine 1.018 (1.001-1.035); Urobilinogen,Urine <2.0 mg/dL (<2.0)
== END | disposition home or self-care (01) ==
LOC: PROCWHC3 06:59
PROVIDERS: ATTEND Internal Medicine Rheumatology
DX: M06.89 Other specified rheumatoid arthritis, multiple sites (principal)
CPT/HCPCS: 80053; 85652; 82248; 85025; 81003; 96413; 96415; 36415; Q5103

== ENCOUNTER → 2020-04-09 | Outpatient (CLI) | payer MEDICARE, BC ==
[~2020-04-09] MED LIST changes: -INFLIXIMAB-DYYB 500 MG in SODIUM CHLORIDE 0.9% 250 ML IV NR
[2020-04-09] MEDS: INFLIXIMAB-DYYB 500 MG in SODIUM CHLORIDE 0.9% 250 ML IV NR ×2 (07:56→08:01)
[2020-04-09 08:15] VITALS: RESP 16; TEMP 97.8
[2020-04-09 08:26] LABS: Basophils % (A) 1 %; Eosinophils # (A) 0.2 k/uL (0-0.7); Eosinophils % (A) 4 %; HCT 44.7 % (39.0-53.0); HGB 14.5 gm/dL (13.0-17.5); Lymphocytes # (A) 1.7 k/uL (1.0-4.8); Lymphocytes % (A) 33 %; MCH 31.1 pg (25.0-35.0); MCHC 32.4 g/dL (31.0-37.0); MCV 95.9 fL (80.0-100.0); Monocytes # (A) 0.5 k/uL (0-1.0); Monocytes % (A) 9 %; Neutrophils # (A) 2.6 k/uL (1.3-7.7); Neutrophils % (A) 51 %; Platelet Count 210 k/uL (150-450); RBC 4.66 m/uL (4.30-5.90); RDW 14.3 % (11.5-15.5)
[2020-04-09 08:38] LABS: Albumin 4.1 g/dL (3.5-5.0); Total Bilirubin 0.5 mg/dL (0.2-1.3); Total Protein 6.9 g/dL (6.3-8.2)
[2020-04-09 08:42] LABS: ALT 28 U/L (4-49); AST 29 U/L (17-59); Alkaline Phosphatase 75 U/L (38-126); Bilirubin, Delta 0.4 mg/dL (0.0-0.2); Bilirubin,Unconjugated 0.1 mg/dL (0.0-1.1); Total Bilirubin 0.5 mg/dL (0.2-1.3); Total Protein 6.8 g/dL (6.3-8.2)
[2020-04-09 09:10] VITALS: BP 110/61; PULSE 58
[2020-04-09 09:42] LABS: Calcium 9.6 mg/dL (8.4-10.2)
[2020-04-09 10:04] LABS: Erythrocyte Sedimentation Rate 2 mm/hr (0-15)
[2020-04-09 10:17] LABS: Appearance,Urine Clear (Clear); Bilirubin,Urine Negative (Negative); Blood,Urine Negative (Negative); Color,Urine Light Yellow; Glucose,Urine (UA) Negative (Negative); Ketones,Urine Negative (Negative); Leukocyte Esterase,Urine Negative (Negative); Nitrite,Urine Negative (Negative); PH, Urine 6.5 (5.0-8.0); Protein,Urine Negative (Negative); Specific Gravity,Urine 1.009 (1.001-1.035); Urobilinogen,Urine <2.0 mg/dL (<2.0)
[2020-04-09 16:49] LABS: PSA Annual Screen <0.1 ng/mL (0.0-4.0)
== END | disposition home or self-care (01) ==
LOC: PROCWHC3 07:02
PROVIDERS: ATTEND Internal Medicine Cardiovascular Disease
DX: I25.10 Atherosclerotic heart disease of native coronary artery without angina pectoris (principal); Z13.220 Encounter for screening for lipoid disorders
CPT/HCPCS: 80061; 80053; 80076; 85652; 84443; 85025; 81003; 83036; 96413; 96415; G0103; Q5103

== ENCOUNTER → 2020-05-21 | Outpatient (CLI) | payer BC, MEDICARE ==
[~2020-05-21] MED LIST changes: +INFLIXIMAB-DYYB 500 MG in SODIUM CHLORIDE 0.9% 250 ML IV NR
[2020-05-21 07:23] VITALS: RESP 16; TEMP 97.8
[2020-05-21 07:55] LABS: Basophils % (A) 1 %; Eosinophils # (A) 0.2 k/uL (0-0.7); Eosinophils % (A) 3 %; HCT 48.2 % (39.0-53.0); HGB 15.3 gm/dL (13.0-17.5); Lymphocytes # (A) 1.7 k/uL (1.0-4.8); Lymphocytes % (A) 29 %; MCH 30.1 pg (25.0-35.0); MCHC 31.7 g/dL (31.0-37.0); Mean Platelet Volume 7.4; Monocytes # (A) 0.5 k/uL (0-1.0); Monocytes % (A) 9 %; Neutrophils # (A) 3.3 k/uL (1.3-7.7); Neutrophils % (A) 57 %; Platelet Count 230 k/uL (150-450); RBC 5.08 m/uL (4.30-5.90); RDW 13.9 % (11.5-15.5); WBC 5.8 k/uL (3.8-10.6)
[2020-05-21 08:08] LABS: Albumin 4.2 g/dL (3.5-5.0); Bilirubin, Delta 0.4 mg/dL (0.0-0.2); Bilirubin,Unconjugated 0.1 mg/dL (0.0-1.1); Calcium 9.4 mg/dL (8.4-10.2); Total Bilirubin 0.5 mg/dL (0.2-1.3); Total Protein 7.3 g/dL (6.3-8.2)
[2020-05-21 08:11] LABS: Potassium 5.1 mmol/L (3.5-5.1)
[2020-05-21 08:44] VITALS: BP 122/78; PULSE 62
[2020-05-21 09:31] LABS: Erythrocyte Sedimentation Rate 2 mm/hr (0-15)
[2020-05-21 09:56] LABS: Appearance,Urine Clear (Clear); Bilirubin,Urine Negative (Negative); Blood,Urine Negative (Negative); Color,Urine Yellow; Glucose,Urine (UA) Negative (Negative); Ketones,Urine Negative (Negative); Leukocyte Esterase,Urine Negative (Negative); Nitrite,Urine Negative (Negative); PH, Urine 6.5 (5.0-8.0); Protein,Urine Negative (Negative); Urobilinogen,Urine <2.0 mg/dL (<2.0)
== END | disposition home or self-care (01) ==
LOC: PROCWHC3 07:11
PROVIDERS: ATTEND Internal Medicine Rheumatology
DX: M06.89 Other specified rheumatoid arthritis, multiple sites (principal)
CPT/HCPCS: 80053; 85652; 82248; 85025; 81003; 96413; 96415; 36415; Q5103

== ENCOUNTER → 2020-07-02 | Outpatient (CLI) | payer MEDICARE ==
[~2020-07-02] MED LIST changes: -ACETAMINOPHEN TAB 325 MG TAB PO NR; +ACETAMINOPHEN TAB 325 MG TAB PO ONE; +INFLIXIMAB-DYYB 500 MG in SODIUM CHLORIDE 0.9% 200 ML IV NR; -INFLIXIMAB-DYYB 500 MG in SODIUM CHLORIDE 0.9% 250 ML IV NR; +diphenhydrAMINE 25 MG CAP PO NR; -diphenhydrAMINE 50 MG CAP PO NR
[2020-07-02 07:20] VITALS: RESP 16; TEMP 98.7
[2020-07-02 07:56] LABS: Basophils # (A) 0.1 k/uL (0-0.2); Basophils % (A) 1 %; Eosinophils # (A) 0.1 k/uL (0-0.7); Eosinophils % (A) 2 %; HGB 14.4 gm/dL (13.0-17.5); Lymphocytes # (A) 1.9 k/uL (1.0-4.8); Lymphocytes % (A) 33 %; MCH 31.3 pg (25.0-35.0); MCHC 32.7 g/dL (31.0-37.0); MCV 95.9 fL (80.0-100.0); Mean Platelet Volume 8.1; Monocytes # (A) 0.6 k/uL (0-1.0); Monocytes % (A) 10 %; Neutrophils # (A) 2.8 k/uL (1.3-7.7); Neutrophils % (A) 51 %; Platelet Count 208 k/uL (150-450); RBC 4.59 m/uL (4.30-5.90); RDW 13.9 % (11.5-15.5); WBC 5.6 k/uL (3.8-10.6)
[2020-07-02 09:00] VITALS: BP 109/73; PULSE 65
[2020-07-02 10:42] LABS: Appearance,Urine Clear (Clear); Bilirubin,Urine Negative (Negative); Blood,Urine Negative (Negative); Color,Urine Light Yellow; Glucose,Urine (UA) 3+ (Negative); Ketones,Urine Negative (Negative); Leukocyte Esterase,Urine Negative (Negative); Nitrite,Urine Negative (Negative); PH, Urine 6.5 (5.0-8.0); Protein,Urine Negative (Negative); Specific Gravity,Urine 1.007 (1.001-1.035); Urobilinogen,Urine <2.0 mg/dL (<2.0)
[2020-07-02 11:24] LABS: Potassium 4.4 mmol/L (3.5-5.1)
[2020-07-02 11:25] LABS: Bilirubin, Delta 0.2 mg/dL (0.0-0.2); Bilirubin,Unconjugated 0.3 mg/dL (0.0-1.1); Calcium 9.1 mg/dL (8.4-10.2); Total Bilirubin 0.5 mg/dL (0.2-1.3); Total Protein 7.1 g/dL (6.3-8.2)
[2020-07-02 11:30] LABS: Erythrocyte Sedimentation Rate 2 mm/hr (0-15)
== END | disposition home or self-care (01) ==
LOC: PROCWHC3 07:00
PROVIDERS: ATTEND Internal Medicine Rheumatology
DX: M06.89 Other specified rheumatoid arthritis, multiple sites (principal)
CPT/HCPCS: 80053; 85652; 82248; 85025; 81003; 96413; 96415; 36415; Q5103

== ENCOUNTER → 2020-07-21 | Outpatient (CLI) | payer MEDICARE ==
--- NOTE | 2020-07-21 17:58 | XR ---
EXAMINATION TYPE: XR abdomen 2V DATE OF EXAM: 07/21/2020 2:39 PM CLINICAL HISTORY: Right flank pain TECHNIQUE: Supine images of the abdomen and pelvis were obtained COMPARISON: None. FINDINGS: Renal shadows are obscured by overlying bowel. Scattered gas is seen in non-distended small bowel loops. Gas and fecal material is seen in non-distended colon. No pneumoperitoneum. The lung ba ses are clear. Degenerative changes of the spine. IMPRESSION: 1. Nonspecific bowel gas pattern. 2. Renal shadows are obscured by overlying bowel.
== END | disposition home or self-care (01) ==
LOC: RADXRMAIN 14:26
PROVIDERS: ATTEND Family Medicine
DX: R10.9 Unspecified abdominal pain (principal)
CPT/HCPCS: 74019

== ENCOUNTER → 2020-08-13 | Outpatient (CLI) | payer MEDICARE ==
[~2020-08-13] MED LIST changes: +ACETAMINOPHEN TAB 325 MG TAB PO NR; -ACETAMINOPHEN TAB 325 MG TAB PO ONE; -INFLIXIMAB-DYYB 500 MG in SODIUM CHLORIDE 0.9% 200 ML IV NR; +INFLIXIMAB-DYYB 500 MG in SODIUM CHLORIDE 0.9% 250 ML IV NR
[2020-08-13 08:20] VITALS: TEMP 98.6
[2020-08-13 09:41] LABS: Basophils # (A) 0.1 k/uL (0-0.2); Basophils % (A) 1 %; Eosinophils # (A) 0.2 k/uL (0-0.7); Eosinophils % (A) 3 %; HGB 15.4 gm/dL (13.0-17.5); Lymphocytes % (A) 31 %; MCH 30.7 pg (25.0-35.0); MCHC 32.9 g/dL (31.0-37.0); MCV 93.3 fL (80.0-100.0); Mean Platelet Volume 7.5; Monocytes # (A) 0.4 k/uL (0-1.0); Monocytes % (A) 6 %; Neutrophils # (A) 3.6 k/uL (1.3-7.7); Neutrophils % (A) 57 %; Platelet Count 236 k/uL (150-450); RBC 5.03 m/uL (4.30-5.90); RDW 14.5 % (11.5-15.5); WBC 6.4 k/uL (3.8-10.6)
[2020-08-13 09:49] VITALS: BP 97/65; PULSE 59; RESP 18
[2020-08-13 10:00] LABS: Bilirubin, Delta 0.3 mg/dL (0.0-0.2); Bilirubin,Unconjugated 0.3 mg/dL (0.0-1.1); Calcium 9.7 mg/dL (8.4-10.2); Potassium 4.9 mmol/L (3.5-5.1); Total Bilirubin 0.6 mg/dL (0.2-1.3); Total Protein 6.9 g/dL (6.3-8.2)
[2020-08-13 10:47] LABS: Erythrocyte Sedimentation Rate 5 mm/hr (0-15)
[2020-08-13 11:48] LABS: Appearance,Urine Clear (Clear); Bilirubin,Urine Negative (Negative); Color,Urine Light Yellow; Glucose,Urine (UA) 1+ (Negative); Ketones,Urine Negative (Negative); PH, Urine 6.5 (5.0-8.0); Protein,Urine Negative (Negative)
[2020-08-13 11:49] LABS: Blood,Urine Negative (Negative); Leukocyte Esterase,Urine Negative (Negative); Nitrite,Urine Negative (Negative); Urobilinogen,Urine <2.0 mg/dL (<2.0)
== END | disposition home or self-care (01) ==
LOC: PROCWHC3 07:57
PROVIDERS: ATTEND Internal Medicine Rheumatology
DX: M06.89 Other specified rheumatoid arthritis, multiple sites (principal)
CPT/HCPCS: 80053; 85652; 82248; 85025; 81003; 96361; 96413; 96415; 36415; Q5103

== ENCOUNTER → 2020-09-24 | Outpatient (CLI) | payer MEDICARE ==
[2020-09-24 07:09] VITALS: RESP 16
[2020-09-24 07:12] VITALS: TEMP 97.7
[2020-09-24 07:44] LABS: Basophils # (A) 0.1 k/uL (0-0.2); Basophils % (A) 1 %; Eosinophils # (A) 0.3 k/uL (0-0.7); Eosinophils % (A) 5 %; HCT 43.4 % (39.0-53.0); HGB 14.8 gm/dL (13.0-17.5); Lymphocytes # (A) 2.2 k/uL (1.0-4.8); Lymphocytes % (A) 35 %; MCH 31.5 pg (25.0-35.0); MCV 92.5 fL (80.0-100.0); Mean Platelet Volume 7.5; Monocytes # (A) 0.6 k/uL (0-1.0); Monocytes % (A) 9 %; Neutrophils % (A) 48 %; Platelet Count 196 k/uL (150-450); WBC 6.3 k/uL (3.8-10.6)
[2020-09-24 08:09] LABS: Albumin 4.2 g/dL (3.5-5.0); Bilirubin, Delta 0.6 mg/dL (0.0-0.2); Bilirubin,Unconjugated 0.1 mg/dL (0.0-1.1); Calcium 9.8 mg/dL (8.4-10.2); Total Bilirubin 0.7 mg/dL (0.2-1.3); Total Protein 7.6 g/dL (6.3-8.2)
[2020-09-24 08:22] LABS: Potassium 5.6 mmol/L (3.5-5.1)
[2020-09-24 08:43] VITALS: BP 102/65; PULSE 69
[2020-09-24 09:01] LABS: Erythrocyte Sedimentation Rate 3 mm/hr (0-15)
[2020-09-24 10:13] LABS: Appearance,Urine Clear (Clear); Bilirubin,Urine Negative (Negative); Blood,Urine Negative (Negative); Color,Urine Light Yellow; Glucose,Urine (UA) Negative (Negative); Ketones,Urine Negative (Negative); Leukocyte Esterase,Urine Negative (Negative); Nitrite,Urine Negative (Negative); Protein,Urine Negative (Negative); Specific Gravity,Urine 1.009 (1.001-1.035); Urobilinogen,Urine <2.0 mg/dL (<2.0)
== END | disposition home or self-care (01) ==
LOC: PROCWHC3 07:01
PROVIDERS: ATTEND Internal Medicine Rheumatology
DX: M06.89 Other specified rheumatoid arthritis, multiple sites (principal)
CPT/HCPCS: 80053; 85652; 82248; 85025; 81003; 96361; 96365; 96366; 36415; Q5103

== ENCOUNTER → 2020-11-05 | Outpatient (CLI) | payer MEDICARE ==
[~2020-11-05] MED LIST changes: -diphenhydrAMINE 25 MG CAP PO NR; +diphenhydrAMINE 50 MG CAP PO NR
[2020-11-05 08:01] VITALS: RESP 16; TEMP 98.3
[2020-11-05 08:21] LABS: Basophils # (A) 0.1 k/uL (0-0.2); Basophils % (A) 1 %; Eosinophils # (A) 0.8 k/uL (0-0.7); Eosinophils % (A) 13 %; HCT 47.9 % (39.0-53.0); HGB 15.8 gm/dL (13.0-17.5); Lymphocytes # (A) 1.8 k/uL (1.0-4.8); Lymphocytes % (A) 29 %; MCH 30.3 pg (25.0-35.0); Mean Platelet Volume 8.2; Monocytes # (A) 0.5 k/uL (0-1.0); Monocytes % (A) 7 %; Neutrophils % (A) 47 %; Platelet Count 215 k/uL (150-450); RBC 5.21 m/uL (4.30-5.90); RDW 14.1 % (11.5-15.5); WBC 6.2 k/uL (3.8-10.6)
[2020-11-05 08:39] VITALS: PULSE 61
[2020-11-05 09:07] VITALS: BP 113/77
[2020-11-05 10:00] LABS: Erythrocyte Sedimentation Rate 2 mm/hr (0-15)
[2020-11-05 10:39] LABS: Appearance,Urine Clear (Clear); Bilirubin,Urine Negative (Negative); Blood,Urine Negative (Negative); Color,Urine Light Yellow; Glucose,Urine (UA) 4+ (Negative); Ketones,Urine Negative (Negative); Leukocyte Esterase,Urine Negative (Negative); Nitrite,Urine Negative (Negative); Protein,Urine Negative (Negative); Specific Gravity,Urine 1.016 (1.001-1.035); Urobilinogen,Urine <2.0 mg/dL (<2.0)
== END | disposition home or self-care (01) ==
LOC: PROCWHC3 06:57
PROVIDERS: ATTEND Internal Medicine Rheumatology
DX: M06.89 Other specified rheumatoid arthritis, multiple sites (principal)
CPT/HCPCS: 85652; 85025; 81003; 96361; 96413; 96415; 36415; Q5103

== ENCOUNTER → 2020-12-09 | Outpatient (CLI) | payer MEDICARE ==
--- NOTE | 2020-12-09 23:15 | CT ---
EXAMINATION TYPE: CT abdomen wo/w con DATE OF EXAM: 12/09/2020 COMPARISON: None. HISTORY: Right renal mass, rt flank pain CT DLP: 2580.2 mGycm, Automated Exposure Control for Dose Reduction was Utilized. CONTRAST: CT scan of the abdomen is performed with oral and without and with IV Contrast, patient injected with 80 mL of Isovue 300. FINDINGS: LUNG BASES: Calcification and/or stent in the right coronary artery distribution. Calcification at [place] of the mitral valve. Additional calcification or metallic density in the left ventricle of uncert ain etiology, possible retained foreign body, correlate clinically. Finding noted image 6 series 3. LIVER/GB: Visualized liver slightly heterogeneously hypodense relative to spleen consistent with mild diffuse fatty infiltration. PANCREAS: No significant abnormality is seen. SPLEEN: No significant abnormality is seen. ADRENALS: No significant abnormality is seen. KIDNEYS: No renal stones on noncontrast CT. Postcontrast images show symmetric cortical medullary up take and excretion without hydronephrosis seen bilaterally. Occasional subcentimeter low dense lesion in the left kidney are too small to further characterize but resumed benign. No concerning solid or cystic renal mass identified bilaterally. Circumaortic left renal vein noted which is normal variant. BOWEL: Oral contrast does not reach level of terminal ileum. No suspicious small or large bowel dilat ation. LYMPH NODES: No greater than 1cm abdominal lymph nodes are appreciated. OSSEOUS STRUCTURES: There is moderate multilevel spurring. Slight scoliotic curvature. Facet arthropa thy lower lumbar levels. OTHER: Overlying vertical surgical scar lower abdomen in the midline. Small hernia containing fat and tiny mesenteric vessels just right of midline axial image 48 series 7. IMPRESSION: No worrisome renal mass with particular attention to right kidney. No renal calculi bila terally or hydronephrosis noted. No acute findings are evident. Cannot exclude metallic foreign body in the left ventricle, correlate clinically.
== END | disposition home or self-care (01) ==
LOC: RADCTMAIN 17:56
PROVIDERS: ATTEND Family Medicine
DX: N28.89 Other specified disorders of kidney and ureter (principal); R10.9 Unspecified abdominal pain
CPT/HCPCS: 82565; 84520; 74170; 36415; Q9967

== ENCOUNTER → 2020-12-17 | Outpatient (CLI) | payer MEDICARE ==
[2020-12-17 08:09] VITALS: RESP 16
[2020-12-17 08:14] VITALS: TEMP 97.9
[2020-12-17 08:50] LABS: Basophils # (A) 0.1 k/uL (0-0.2); Basophils % (A) 1 %; Eosinophils # (A) 0.5 k/uL (0-0.7); Eosinophils % (A) 8 %; HCT 50.1 % (39.0-53.0); HGB 16.1 gm/dL (13.0-17.5); Lymphocytes # (A) 2.2 k/uL (1.0-4.8); Lymphocytes % (A) 34 %; MCH 29.8 pg (25.0-35.0); MCHC 32.2 g/dL (31.0-37.0); MCV 92.5 fL (80.0-100.0); Monocytes # (A) 0.6 k/uL (0-1.0); Monocytes % (A) 10 %; Neutrophils # (A) 2.9 k/uL (1.3-7.7); Neutrophils % (A) 45 %; Platelet Count 222 k/uL (150-450); RBC 5.42 m/uL (4.30-5.90); RDW 13.7 % (11.5-15.5); WBC 6.5 k/uL (3.8-10.6)
[2020-12-17 09:00] LABS: Albumin 4.6 g/dL (3.5-5.0); Bilirubin, Delta 0.1 mg/dL (0.0-0.2); Bilirubin,Unconjugated 0.4 mg/dL (0.0-1.1); Calcium 10.1 mg/dL (8.4-10.2); Total Bilirubin 0.5 mg/dL (0.2-1.3); Total Protein 8.2 g/dL (6.3-8.2)
[2020-12-17 09:49] VITALS: BP 95/63; PULSE 58
[2020-12-17 14:33] LABS: Erythrocyte Sedimentation Rate 6 mm/hr (0-15)
== END ==
LOC: PROCWHC3 07:59
PROVIDERS: ATTEND Internal Medicine Rheumatology
DX: M06.89 Other specified rheumatoid arthritis, multiple sites (principal)
CPT/HCPCS: 80053; 85652; 82248; 85025; 96413; 96415; 36415; Q5103

== ENCOUNTER → 2021-01-28 | Outpatient (CLI) | payer MEDICARE ==
[~2021-01-28] MED LIST changes: +diphenhydrAMINE 25 MG CAP PO NR; -diphenhydrAMINE 50 MG CAP PO NR
[2021-01-28 07:26] VITALS: RESP 16; TEMP 97.7
[2021-01-28 07:53] LABS: Basophils # (A) 0.1 k/uL (0-0.2); Basophils % (A) 1 %; Eosinophils # (A) 0.2 k/uL (0-0.7); Eosinophils % (A) 4 %; HCT 44.7 % (39.0-53.0); Lymphocytes # (A) 1.9 k/uL (1.0-4.8); Lymphocytes % (A) 38 %; MCHC 33.5 g/dL (31.0-37.0); MCV 89.7 fL (80.0-100.0); Monocytes # (A) 0.5 k/uL (0-1.0); Monocytes % (A) 10 %; Neutrophils # (A) 2.3 k/uL (1.3-7.7); Neutrophils % (A) 46 %; Platelet Count 198 k/uL (150-450); RBC 4.98 m/uL (4.30-5.90); RDW 13.5 % (11.5-15.5)
[2021-01-28 08:04] LABS: Bilirubin, Delta 0.1 mg/dL (0.0-0.2); Bilirubin,Unconjugated 0.2 mg/dL (0.0-1.1); Calcium 9.6 mg/dL (8.4-10.2); Potassium 4.5 mmol/L (3.5-5.1); Total Bilirubin 0.3 mg/dL (0.2-1.3); Total Protein 6.9 g/dL (6.3-8.2)
[2021-01-28 09:02] VITALS: BP 107/67; PULSE 61
[2021-01-28 12:11] LABS: Erythrocyte Sedimentation Rate 4 mm/hr (0-15)
== END ==
LOC: PROCWHC3 06:59
PROVIDERS: ATTEND Internal Medicine Rheumatology
DX: M06.89 Other specified rheumatoid arthritis, multiple sites (principal); Z87.891 Personal history of nicotine dependence
CPT/HCPCS: 80053; 85652; 82248; 85025; 96361; 96413; 96415; 36415; Q5103

== ENCOUNTER → 2021-03-11 | Outpatient (CLI) | payer MEDICARE ==
[2021-03-11 07:33] VITALS: RESP 16; TEMP 98.3
[2021-03-11 07:57] LABS: Basophils % (A) 1 %; Eosinophils # (A) 0.2 k/uL (0-0.7); Eosinophils % (A) 4 %; HCT 46.1 % (39.0-53.0); HGB 15.2 gm/dL (13.0-17.5); Lymphocytes # (A) 1.7 k/uL (1.0-4.8); Lymphocytes % (A) 35 %; MCH 29.4 pg (25.0-35.0); MCHC 33.1 g/dL (31.0-37.0); MCV 88.9 fL (80.0-100.0); Mean Platelet Volume 7.7; Monocytes # (A) 0.5 k/uL (0-1.0); Monocytes % (A) 10 %; Neutrophils # (A) 2.4 k/uL (1.3-7.7); Neutrophils % (A) 49 %; Platelet Count 189 k/uL (150-450); RBC 5.18 m/uL (4.30-5.90); RDW 13.8 % (11.5-15.5); WBC 4.9 k/uL (3.8-10.6)
[2021-03-11 08:32] LABS: Albumin 4.1 g/dL (3.5-5.0); Bilirubin, Delta 0.2 mg/dL (0.0-0.2); Bilirubin,Unconjugated 0.2 mg/dL (0.0-1.1); Calcium 9.8 mg/dL (8.4-10.2); Potassium 4.9 mmol/L (3.5-5.1); Total Bilirubin 0.4 mg/dL (0.2-1.3); Total Protein 7.2 g/dL (6.3-8.2)
[2021-03-11 08:58] VITALS: BP 80/54; PULSE 62
[2021-03-11 10:23] LABS: Erythrocyte Sedimentation Rate 5 mm/hr (0-15)
== END ==
LOC: PROCWHC3 06:59
PROVIDERS: ATTEND Internal Medicine Rheumatology
DX: M06.9 Rheumatoid arthritis, unspecified (principal)
CPT/HCPCS: 80053; 85652; 82248; 85025; 96361; 96413; 96415; 36415; Q5103

== ENCOUNTER → 2021-06-03 | Outpatient (CLI) | payer MEDICARE ==
[~2021-06-03] MED LIST changes: -INFLIXIMAB-DYYB 500 MG in SODIUM CHLORIDE 0.9% 250 ML IV NR
[2021-06-03] MEDS: INFLIXIMAB-DYYB 500 MG in SODIUM CHLORIDE 0.9% 250 ML IV NR ×2 (07:25→07:35)
[2021-06-03 07:44] VITALS: RESP 16
[2021-06-03 07:57] LABS: HCT 50.1 % (39.0-53.0); HGB 16.4 gm/dL (13.0-17.5); MCH 30.2 pg (25.0-35.0); MCHC 32.6 g/dL (31.0-37.0); MCV 92.7 fL (80.0-100.0); Mean Platelet Volume 8.5; Platelet Count 209 k/uL (150-450); RBC 5.41 m/uL (4.30-5.90); RDW 13.6 % (11.5-15.5); WBC 6.9 k/uL (3.8-10.6)
[2021-06-03 08:49] VITALS: BP 97/61; PULSE 58
[2021-06-03 15:47] LABS: Erythrocyte Sedimentation Rate 2 mm/hr (0-15)
== END ==
LOC: PROCWHC3 06:56
PROVIDERS: ATTEND Internal Medicine Rheumatology
DX: M06.89 Other specified rheumatoid arthritis, multiple sites (principal); Z87.891 Personal history of nicotine dependence
CPT/HCPCS: 85652; 85027; 96361; 96413; 96415; 36415; Q5103

== ENCOUNTER → 2021-06-03 | Outpatient (CLI) | payer MEDICARE | LOC: PROCWHC3 07:15 | PROVIDERS: ATTEND Internal Medicine Rheumatology | DX: Z53.9 Procedure and treatment not carried out, unspecified reason (principal) ==

== ENCOUNTER → 2021-07-15 | Outpatient (CLI) | payer MEDICARE ==
[~2021-07-15] MED LIST changes: +INFLIXIMAB-DYYB 500 MG in SODIUM CHLORIDE 0.9% 250 ML IV NR
[2021-07-15 07:42] VITALS: RESP 16; TEMP 98.3
[2021-07-15 07:59] LABS: Basophils # (A) 0.1 k/uL (0-0.2); Basophils % (A) 1 %; Eosinophils # (A) 0.4 k/uL (0-0.7); Eosinophils % (A) 6 %; HCT 52.6 % (39.0-53.0); HGB 17.2 gm/dL (13.0-17.5); Lymphocytes % (A) 34 %; MCH 29.9 pg (25.0-35.0); MCHC 32.7 g/dL (31.0-37.0); MCV 91.5 fL (80.0-100.0); Mean Platelet Volume 7.6; Monocytes # (A) 0.4 k/uL (0-1.0); Monocytes % (A) 7 %; Neutrophils # (A) 2.9 k/uL (1.3-7.7); Neutrophils % (A) 50 %; Platelet Count 188 k/uL (150-450); RBC 5.75 m/uL (4.30-5.90); RDW 13.4 % (11.5-15.5); WBC 5.8 k/uL (3.8-10.6)
[2021-07-15 08:21] LABS: Albumin 4.4 g/dL (3.5-5.0); Bilirubin, Delta 0.3 mg/dL (0.0-0.2); Bilirubin,Unconjugated 0.1 mg/dL (0.0-1.1); Calcium 10.4 mg/dL (8.4-10.2); Potassium 4.8 mmol/L (3.5-5.1); Total Bilirubin 0.4 mg/dL (0.2-1.3)
[2021-07-15 08:45] VITALS: BP 110/72; PULSE 61
[2021-07-15 09:36] LABS: Erythrocyte Sedimentation Rate 2 mm/hr (0-15)
== END ==
LOC: PROCWHC3 07:24
PROVIDERS: ATTEND Internal Medicine Rheumatology
DX: M06.89 Other specified rheumatoid arthritis, multiple sites (principal); Z87.891 Personal history of nicotine dependence
CPT/HCPCS: 80053; 85652; 82248; 85025; 96361; 96413; 96415; 36415; Q5103

== ENCOUNTER → 2021-08-26 | Outpatient (CLI) | payer MEDICARE ==
[~2021-08-26] MED LIST changes: -diphenhydrAMINE 50 MG/ML 1 ML VIAL IVP NR
[2021-08-26 07:34] VITALS: RESP 16; TEMP 97.8
[2021-08-26 07:44] LABS: Basophils % (A) 1 %; Eosinophils # (A) 0.4 k/uL (0-0.7); Eosinophils % (A) 6 %; HCT 51.7 % (39.0-53.0); HGB 16.9 gm/dL (13.0-17.5); Lymphocytes # (A) 2.1 k/uL (1.0-4.8); Lymphocytes % (A) 31 %; MCH 30.1 pg (25.0-35.0); MCHC 32.7 g/dL (31.0-37.0); MCV 92.1 fL (80.0-100.0); Mean Platelet Volume 7.7; Monocytes # (A) 0.5 k/uL (0-1.0); Monocytes % (A) 7 %; Neutrophils # (A) 3.6 k/uL (1.3-7.7); Neutrophils % (A) 53 %; Platelet Count 208 k/uL (150-450); RBC 5.61 m/uL (4.30-5.90); RDW 13.6 % (11.5-15.5); WBC 6.8 k/uL (3.8-10.6)
[2021-08-26 08:05] LABS: Albumin 4.5 g/dL (3.5-5.0); Bilirubin, Delta 0.4 mg/dL (0.0-0.2); Bilirubin,Unconjugated 0.2 mg/dL (0.0-1.1); Calcium 10.2 mg/dL (8.4-10.2); Potassium 4.5 mmol/L (3.5-5.1); Total Bilirubin 0.6 mg/dL (0.2-1.3); Total Protein 8.2 g/dL (6.3-8.2)
[2021-08-26 09:06] VITALS: BP 108/69; PULSE 61
[2021-08-26 09:25] LABS: Erythrocyte Sedimentation Rate 2 mm/hr (0-15)
== END ==
LOC: PROCWHC3 07:21
PROVIDERS: ATTEND Internal Medicine Rheumatology
DX: M06.89 Other specified rheumatoid arthritis, multiple sites (principal); Z87.891 Personal history of nicotine dependence
CPT/HCPCS: 80053; 85652; 82248; 85025; 96361; 96413; 96415; 36415; Q5103

== ENCOUNTER → 2021-10-07 | Outpatient (CLI) | payer MEDICARE ==
[~2021-10-07] MED LIST changes: -INFLIXIMAB-DYYB 500 MG in SODIUM CHLORIDE 0.9% 250 ML IV NR; +INFLIXIMAB-DYYB 700 MG in SODIUM CHLORIDE 0.9% 180 ML IV NR; +LORATADINE 10 MG TAB PO NR; +methylPREDNISolone SOD SUCCI 125 MG/2 ML VIAL IV NR
[2021-10-07 07:38] VITALS: TEMP 98.4
[2021-10-07 08:10] VITALS: RESP 16
[2021-10-07 08:48] VITALS: BP 98/64; PULSE 67
== END ==
LOC: PROCWHC3 07:12
PROVIDERS: ATTEND Internal Medicine Rheumatology
DX: M06.89 Other specified rheumatoid arthritis, multiple sites (principal); Z87.891 Personal history of nicotine dependence
CPT/HCPCS: 96361; 96413; 96415; Q5103

== ENCOUNTER → 2021-11-18 | Outpatient (CLI) | payer MEDICARE ==
[~2021-11-18] MED LIST changes: -INFLIXIMAB-DYYB 700 MG in SODIUM CHLORIDE 0.9% 180 ML IV NR; +INFLIXIMAB-DYYB 700 MG in SODIUM CHLORIDE 0.9% 250 ML IV NR; +diphenhydrAMINE 50 MG/ML 1 ML VIAL IVP NR; -methylPREDNISolone SOD SUCCI 125 MG/2 ML VIAL IV NR; +methylPREDNISolone SOD SUCCI 125 MG/2 ML VIAL IVP NR
[2021-11-18 07:52] VITALS: RESP 16; TEMP 98.1
[2021-11-18 09:07] VITALS: BP 99/63; PULSE 59
== END ==
LOC: PROCWHC3 07:12
PROVIDERS: ATTEND Internal Medicine Rheumatology
DX: M06.89 Other specified rheumatoid arthritis, multiple sites (principal); Z87.891 Personal history of nicotine dependence
CPT/HCPCS: 96413; 96415; Q5103

== ENCOUNTER → 2022-01-11 | Outpatient (CLI) | payer MEDICARE ==
[~2022-01-11] MED LIST changes: +INFLIXIMAB-DYYB 700 MG in SODIUM CHLORIDE 0.9% 180 ML IV NR; -INFLIXIMAB-DYYB 700 MG in SODIUM CHLORIDE 0.9% 250 ML IV NR; +methylPREDNISolone SOD SUCCI 125 MG/2 ML VIAL IV NR; -methylPREDNISolone SOD SUCCI 125 MG/2 ML VIAL IVP NR
[2022-01-11 08:06] VITALS: RESP 16; TEMP 98.1
[2022-01-11 09:27] VITALS: BP 90/60; PULSE 79
== END ==
LOC: PROCWHC3 07:38
PROVIDERS: ATTEND Internal Medicine Rheumatology
DX: M06.89 Other specified rheumatoid arthritis, multiple sites (principal); Z87.891 Personal history of nicotine dependence
CPT/HCPCS: 96361; 96413; 96415; Q5103

== ENCOUNTER → 2022-02-24 | Outpatient (CLI) | payer MEDICARE ==
[~2022-02-24] MED LIST changes: -INFLIXIMAB-DYYB 700 MG in SODIUM CHLORIDE 0.9% 180 ML IV NR; +INFLIXIMAB-DYYB 700 MG in SODIUM CHLORIDE 0.9% 250 ML IV NR; -methylPREDNISolone SOD SUCCI 125 MG/2 ML VIAL IV NR; +methylPREDNISolone SOD SUCCI 125 MG/2 ML VIAL IVP NR
[2022-02-24 07:35] VITALS: RESP 16; TEMP 97.7
[2022-02-24 08:59] VITALS: BP 126/83; PULSE 66
== END ==
LOC: PROCWHC3 07:09
PROVIDERS: ATTEND Internal Medicine Rheumatology
DX: M06.89 Other specified rheumatoid arthritis, multiple sites (principal); Z87.891 Personal history of nicotine dependence

== ENCOUNTER → 2022-04-07 | Outpatient (CLI) | payer MEDICARE ==
[~2022-04-07] MED LIST changes: +methylPREDNISolone SOD SUCCI 125 MG/2 ML VIAL IV NR; -methylPREDNISolone SOD SUCCI 125 MG/2 ML VIAL IVP NR
[2022-04-07 07:53] VITALS: RESP 16; TEMP 98.1
[2022-04-07 09:02] VITALS: BP 130/72; PULSE 64
== END | disposition home or self-care (01) ==
LOC: PROCWHC3 07:14
PROVIDERS: ATTEND Internal Medicine Rheumatology
DX: M06.89 Other specified rheumatoid arthritis, multiple sites (principal)
CPT/HCPCS: 96361; 96413; 96415; Q5103

== ENCOUNTER → 2022-05-19 | Outpatient (CLI) | payer MEDICARE ==
[~2022-05-19] MED LIST changes: +INFLIXIMAB-DYYB 600 MG in SODIUM CHLORIDE 0.9% 190 ML IV NR; -INFLIXIMAB-DYYB 700 MG in SODIUM CHLORIDE 0.9% 250 ML IV NR; -LORATADINE 10 MG TAB PO NR; +ONDANSETRON 4 MG TAB PO NR; +ONDANSETRON 4 MG/2 ML VIAL IVP NR
[2022-05-19 08:23] VITALS: RESP 16; TEMP 98.1
[2022-05-19 09:10] VITALS: PULSE 69
[2022-05-19 09:39] VITALS: BP 100/63
== END ==
LOC: PROCWHC3 08:07
PROVIDERS: ATTEND Internal Medicine Rheumatology
DX: M06.89 Other specified rheumatoid arthritis, multiple sites (principal)
CPT/HCPCS: 96413; 96415; Q5103

== ENCOUNTER → 2022-06-30 | Outpatient (CLI) | payer MEDICARE ==
[~2022-06-30] MED LIST changes: -ONDANSETRON 4 MG TAB PO NR; -ONDANSETRON 4 MG/2 ML VIAL IVP NR
[2022-06-30 07:38] VITALS: RESP 16; TEMP 98
[2022-06-30 09:42] VITALS: BP 103/68; PULSE 64
== END ==
LOC: PROCWHC3 07:15
PROVIDERS: ATTEND Internal Medicine Rheumatology
DX: M06.89 Other specified rheumatoid arthritis, multiple sites (principal); Z87.891 Personal history of nicotine dependence
CPT/HCPCS: 96413; 96415; Q5103

== ENCOUNTER → 2022-08-11 | Outpatient (CLI) | payer MEDICARE ==
[~2022-08-11] MED LIST changes: -methylPREDNISolone SOD SUCCI 125 MG/2 ML VIAL IV NR; +methylPREDNISolone SOD SUCCI 125 MG/2 ML VIAL IVP NR
[2022-08-11 07:47] VITALS: PULSE 72; RESP 16; TEMP 98.6
[2022-08-11 09:18] VITALS: BP 99/65
== END ==
LOC: PROCWHC3 07:13
PROVIDERS: ATTEND Internal Medicine Rheumatology
DX: M06.89 Other specified rheumatoid arthritis, multiple sites (principal); Z87.891 Personal history of nicotine dependence
CPT/HCPCS: 96413; 96415; Q5103

== ENCOUNTER → 2022-09-22 | Outpatient (CLI) | payer MEDICARE ==
[~2022-09-22] MED LIST changes: -INFLIXIMAB-DYYB 600 MG in SODIUM CHLORIDE 0.9% 190 ML IV NR; +INFLIXIMAB-DYYB 600 MG in SODIUM CHLORIDE 0.9% 250 ML IV NR; +ONDANSETRON 4 MG TAB PO NR; +ONDANSETRON 4 MG/2 ML VIAL IVP NR; +methylPREDNISolone SOD SUCCI 125 MG/2 ML VIAL IV NR; -methylPREDNISolone SOD SUCCI 125 MG/2 ML VIAL IVP NR
[2022-09-22 07:44] VITALS: RESP 16; TEMP 98.2
[2022-09-22 09:10] VITALS: BP 96/65; PULSE 80
== END ==
LOC: PROCWHC3 07:16
PROVIDERS: ATTEND Internal Medicine Rheumatology
DX: M06.89 Other specified rheumatoid arthritis, multiple sites (principal); Z87.891 Personal history of nicotine dependence
CPT/HCPCS: 96413; 96415; Q5103

== ENCOUNTER → 2022-12-15 | Outpatient (CLI) | payer MEDICARE ==
[2022-12-15 08:35] VITALS: RESP 16; TEMP 98
[2022-12-15 08:40] LABS: Basophils % (A) 1 %; Eosinophils # (A) 0.2 k/uL (0-0.7); Eosinophils % (A) 5 %; HCT 48.5 % (39.0-53.0); Lymphocytes # (A) 1.1 k/uL (1.0-4.8); Lymphocytes % (A) 22 %; MCH 30.5 pg (25.0-35.0); MCV 92.3 fL (80.0-100.0); Mean Platelet Volume 7.7; Monocytes # (A) 0.4 k/uL (0-1.0); Monocytes % (A) 7 %; Neutrophils # (A) 3.2 k/uL (1.3-7.7); Neutrophils % (A) 63 %; Platelet Count 209 k/uL (150-450); RBC 5.25 m/uL (4.30-5.90); RDW 15.3 % (11.5-15.5); WBC 5.1 k/uL (3.8-10.6)
[2022-12-15 08:52] LABS: ALT 27 U/L (4-49); AST 24 U/L (17-59); African American GFR (CKD) 76 (>60 ml/min/1.73 sqM); Albumin 4.2 g/dL (3.5-5.0); Alkaline Phosphatase 68 U/L (38-126); Anion Gap 11 mmol/L; Blood Urea Nitrogen 27 mg/dL (9-20); Calcium 9.9 mg/dL (8.4-10.2); Carbon Dioxide 21 mmol/L (22-30); Chloride 104 mmol/L (98-107); Glucose 121 mg/dL (74-99); Non-African American GFR(CKD) 65 (>60 ml/min/1.73 sqM); Potassium 4.9 mmol/L (3.5-5.1); Sodium 136 mmol/L (137-145); Total Bilirubin 0.5 mg/dL (0.2-1.3); Total Protein 7.3 g/dL (6.3-8.2)
[2022-12-15 09:42] VITALS: BP 104/73; PULSE 76
[2022-12-15 15:45] LABS: Chol/HDL Ratio 5.76 Ratio; LDL Cholesterol,Calculated 111.5 mg/dL (0.0-131.0)
[2022-12-15 16:05] LABS: PSA Annual Screen <0.014 ng/mL (0.000-4.000)
== END ==
LOC: PROCWHC3 07:57
PROVIDERS: ATTEND Internal Medicine Rheumatology
DX: M06.89 Other specified rheumatoid arthritis, multiple sites (principal); Z87.891 Personal history of nicotine dependence
CPT/HCPCS: 80061; 80053; 84443; 85025; 83036; 96361; 96413; 96415; 36415; G0103; Q5103

== ENCOUNTER → 2023-06-08 | Outpatient (CLI) | payer MEDICARE ==
[~2023-06-08] MED LIST changes: -INFLIXIMAB-DYYB 600 MG in SODIUM CHLORIDE 0.9% 250 ML IV NR; +INFLIXIMAB-DYYB 700 MG in SODIUM CHLORIDE 0.9% 250 ML IV NR; -methylPREDNISolone SOD SUCCI 125 MG/2 ML VIAL IV NR; +methylPREDNISolone SOD SUCCI 125 MG/2 ML VIAL IVP NR
[2023-06-08 07:50] VITALS: RESP 16; TEMP 98.5
[2023-06-08 08:34] LABS: HCT 48.3 % (39.0-53.0); HGB 16.2 gm/dL (13.0-17.5); MCH 32.5 pg (25.0-35.0); MCHC 33.6 g/dL (31.0-37.0); MCV 96.8 fL (80.0-100.0); Mean Platelet Volume 10.6; Platelet Count 174 k/uL (150-450); RBC 4.99 m/uL (4.30-5.90); RDW 14.8 % (11.5-15.5); WBC 5.7 k/uL (3.8-10.6)
[2023-06-08 09:17] VITALS: BP 95/62; PULSE 69
== END ==
LOC: PROCWHC3 07:12
PROVIDERS: ATTEND Internal Medicine Rheumatology
DX: M06.9 Rheumatoid arthritis, unspecified (principal); E78.5 Hyperlipidemia, unspecified; E11.9 Type 2 diabetes mellitus without complications
CPT/HCPCS: 85652; 85027; 96413; 96415; Q5103; 36415; 96365; 96366

== ENCOUNTER → 2023-07-20 | Outpatient (CLI) | payer MEDICARE ==
[~2023-07-20] MED LIST changes: -ONDANSETRON 4 MG TAB PO NR; -ONDANSETRON 4 MG/2 ML VIAL IVP NR; +SODIUM CHLORIDE 0.9% 250 ML IV NR; -diphenhydrAMINE 25 MG CAP PO NR
[2023-07-20 07:30] VITALS: RESP 16; TEMP 98.3
[2023-07-20 07:42] LABS: Basophils # (A) 0.1 k/uL (0-0.2); Basophils % (A) 1 %; Eosinophils # (A) 0.2 k/uL (0-0.7); Eosinophils % (A) 5 %; HCT 48.5 % (39.0-53.0); Lymphocytes # (A) 1.8 k/uL (1.0-4.8); Lymphocytes % (A) 34 %; MCH 31.3 pg (25.0-35.0); Mean Platelet Volume 8.2; Monocytes # (A) 0.3 k/uL (0-1.0); Monocytes % (A) 5 %; Neutrophils # (A) 2.9 k/uL (1.3-7.7); Neutrophils % (A) 54 %; Platelet Count 202 k/uL (150-450); RBC 5.11 m/uL (4.30-5.90); RDW 13.9 % (11.5-15.5); WBC 5.3 k/uL (3.8-10.6)
[2023-07-20 08:10] LABS: ALT 33 U/L (4-49); AST 31 U/L (17-59); African American GFR (CKD) 69 (>60 ml/min/1.73 sqM); Non-African American GFR(CKD) 59 (>60 ml/min/1.73 sqM)
[2023-07-20 08:54] VITALS: BP 95/62; PULSE 76
[2023-07-20 11:24] LABS: C Reactive Protein <0.5 mg/dL (<1.0)
[2023-07-20 19:47] LABS: Erythrocyte Sedimentation Rate 22 mm/Hr (0-20)
== END ==
LOC: PROCWHC3 07:13
PROVIDERS: ATTEND Internal Medicine Rheumatology
DX: M06.9 Rheumatoid arthritis, unspecified (principal)
CPT/HCPCS: 85652; 82565; 84450; 84460; 85025; 86140; 96413; 96415; Q5103

== ENCOUNTER → 2023-09-07 | Outpatient (CLI) | payer MEDICARE ==
[2023-09-07 15:42] LABS: Hepatitis B Surface Antigen Nonreactive; Hepatitis C IgG Antibody Nonreactive
== END | disposition home or self-care (01) ==
LOC: LABWHC1 11:58
PROVIDERS: ATTEND Internal Medicine Rheumatology
DX: M06.9 Rheumatoid arthritis, unspecified (principal)
CPT/HCPCS: 36415; 86480; 86803; 87340

== ENCOUNTER → 2023-10-05 | Outpatient (CLI) | payer MEDICARE ==
--- NOTE | 2023-10-05 11:21 | CT ---
EXAMINATION TYPE: CT brain w con DATE OF EXAM: 10/05/2023 COMPARISON: none HISTORY: blurred vision CT DLP: 1171 mGycm Automated exposure control for dose reduction was used. CONTRAST: CT scan of the head is performed with IV Contrast, patient injected with 80 mL of Isovue 300. FINDINGS: There is no abnormal enhancing mass or midline shift identified. The ventricles and sulci are within normal limits in size. The globes are intact and the visualized sinuses are clear. IMPRESSION: Negative contrast enhanced head CT exam.
== END | disposition home or self-care (01) ==
LOC: RADCTMAIN 08:32
PROVIDERS: ATTEND Family Medicine
DX: R27.0 Ataxia, unspecified (principal); H53.2 Diplopia
CPT/HCPCS: 70460; Q9967